=== PATIENT | female | born 1960 | race Caucasian/White ===

== ENCOUNTER 2018-04-22 10:15 | Inpatient (IN) | payer MEDICARE, MEDICAID ==
--- NOTE | 2018-04-13 13:08 | HP ---
HISTORY AND PHYSICAL: DATE OF ADMISSION/SURGERY: 04/22/18 DATE OF OFFICE VISIT: 04/12/18 SURGEON: Rowan Fuentes MD.* (DICTATED BY KARLA ZAMORA) PROCEDURE: Right total knee arthroplasty. CHIEF COMPLAINT: Right knee pain. HISTORY OF PRESENT ILLNESS: Ms. Florez is a 57-year-old female with complaints of right knee pain. She has failed conservative treatment and elected to proceed with right total knee arthroplasty. PAST MEDICAL HISTORY: Hypothyroidism. PAST SURGICAL HISTORY: Hysterectomy, cholecystectomy and tubal ligation. CURRENT MEDICATIONS: 1. Flexeril 5 mg daily. 2. Levothyroxine 25 mcg daily. 3. Ventolin inhaler. ALLERGIES: PENICILLIN. FAMILY HISTORY: Unknown. SOCIAL HISTORY: She is a 57-year-old female. She lives with her . She does not smoke, use drugs or alcohol. REVIEW OF SYSTEMS: A complete 14-point review of systems was reviewed with the patient. It is positive for hypothyroidism. She denies history of DVT, PE, hepatitis, HIV or anesthesia problems. PHYSICAL EXAMINATION GENERAL: She is well developed, well nourished, in no acute distress. VITAL SIGNS: She stands 66 inches tall, weighs 218 pounds. Blood pressure is 134/82, heart rate is 72. HEENT: Normocephalic, atraumatic. NECK: Supple. No palpable lymph nodes. PULMONARY: Lungs are clear to auscultation bilaterally. CARDIAC: Regular rate and rhythm. Strong S1, S2. ABDOMEN: Soft, nontender, nondistended. NEUROLOGICAL: She is alert and oriented x3. MUSCULOSKELETAL: Right lower extremity, the skin is intact. There are no open wounds or abrasions. She has some tenderness over the medial joint line. There is a moderate to large joint effusion. Range of motion is 10 to 90 degrees of flexion with significant patellofemoral crepitus. She has 2+ dorsalis pedis pulse, 5/5 lower extremity strength and intact sensation. ASSESSMENT AND PLAN: Ms. Florez is a 57-year-old female with end-stage osteoarthritis of the right knee. She has failed conservative treatments and elected to proceed with a right total knee arthroplasty. This surgery is scheduled for 04/22/[address] Fuentes discussed the risks and benefits of the surgery at today's visit and all of her questions were answered. She will follow up with Dr. Fuentes 2 weeks after the surgery. KARLA ZAMORA [id number]/CPS #: [id number]
[~2018-04-22 10:15] MED LIST: Buffered Lidocaine 1% SYRIN* 1 ML/SYRINGE INTRADERM ONE; Dexamethasone TAB* 4 MG PO ONE; DiMENhydriNATE IV* 50 MG/ML VIAL IV PUSH PRN; Famotidine IV* 10 MG/ML 2 ML (20 mg) IV ONE; Gabapentin CAP(*) 300 MG PO ONE; Lactated Ringers 1000 ML Bag* 1,000 ML IV SCH; Morphine VIAL* 4 MG/ML VIAL (1 ml vial) IV PRN; Naloxone* 0.4 MG/ML 1 ML VIAL IV PRN; Ondansetron TAB* 4 MG PO ONE; PROCHLORPERAZINE INJ 5 MG/ML 2 ML VIAL IV PRN; Scopolamine 1.5 mg* PATCH TRANSDERM PRN; Tranexamic Acid 1,000 MG in NS 0.9% 50 ML* (outpatient use) IV SCH; fentaNYL* 50 MCG/ML 2 ML VIAL (100 MCG VIAL) IV PRN; oxyCODONE/Acetamin 5/325 MG* TAB PO PRN
--- OUTSIDE RECORDS SUMMARY | 2018-04-22 10:19 | XMS REPORT | Continuity of Care Document ---
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 pharyngitis, unspecified Z11.59 Encounter for screening for other viral diseases Office Visit 05/21/2016 5:15p Main Office Ky Carranza06.9 Acute upper MD respiratory infection, unspecified Office Visit 01/21/2016 2:00p Main Office Manjinder Bear B37.9 Candidiasis, [employer] unspecified 244.8 Hypothyroidism Other Spec Z23 Encounter for immunization E03.8 Other specified hypothyroidism Office Visit 02/16/2015 2:15p Main Office Shawnti R. J06.9 Acute upper Storm, [employer] respiratory infection, unspecified M25.569 Pain in unspecified knee Office Visit 11/10/2014 10:30a Main Office Shawnti R. 465.9 URI Upper Storm, [employer] Respiratory Infections Acute Unspec Sites Office Visit 09/07/2014 11:45a Main Office Shawnti R. 244.9 Hypothyroidism Other Storm, [employer] Unspec 691.8 Dermatitis Atopic & Related Conditions Other Office Visit 05/04/2014 10:30a Main Office Shawnti R. Chema, 477.9 Rhinitis Allergic [employer] Cause Unspec 244.8 Hypothyroidism Other Spec Office Visit 04/18/2014 2:15p Main Office Shawnti R. 465.9 URI Upper Storm, [employer] Respiratory Infections Acute Unspec Sites Office Visit 03/28/2014 11:00a Main Office Shawnti R. 465.9 URI Upper Storm, [employer] Respiratory Infections Acute Unspec Sites Office Visit 10/20/2013 10:45a Main Office Shawnti R. 244.9 Hypothyroidism Other Storm, [employer] Unspec 244.8 Hypothyroidism Other Spec Office Visit 09/05/2013 2:45p Main Office Manjinder Bear, 724.5 Backache Unspec [employer] Office Visit 07/15/2013 2:45p Main Office Mary Long, 724.5 Backache Unspec [employer] Office Visit 05/11/2013 11:45a Main Office Mary Long, 786.2 Cough [employer] Office Visit 05/03/2013 2:15p Main Office Derrickwntvinny RKeaton Bear, 789.9 Abdomen & Pelvis [employer] Symptoms Other 465.9 URI Upper Respiratory Infections Acute Unspec Sites V06.1 Quuofhcepk-Sxzrsqi-Ojqspjbc Combined (DTaP) Office Visit 11/22/2012 2:15p Main Office Derrickwnti R. 717.9 Internal Derangement Storm, [employer] Knee Unspec 844.9 Sprains & Strains Knee & Leg Unspec Office Visit 09/23/2012 4:15p Main Office Derrickwntvinny R. 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 Discussed supportive care and use of medications for symptoms reliefEducated on new/worsening symptoms and when to call/return. Patient stated understanding and agrees to planRecommendations:Continue with your Flonase for the next week Also continue Zyrtec daily during your allergy seasonYou might also benefit from a decongestant
--- OUTSIDE RECORDS SUMMARY | 2018-04-22 10:19 | XMS REPORT | Continuity of Care Document ---
:1960 External Reference #:[id number] Author Name JASPAL Rosales Address [address] [place] [address] Care Team Providers Name Role Phone JASPAL Rosales Care Team Information Monotype Caster Unavailable Payers Type Date Identification Numbers Payment Provider Subscriber Effective: Policy Number: [id number] Medicare - Bswny Umd Lexi Florez 1987 PayID: [id number] [address] [place] [address] Policy Number: [id number] Medicaid After Medicare Lexi Florez Group Name: 2 1 [address] PayID: [id number] [place] [address] Advance Directives Description No Information Available Problems [...] disability is, she used to work at [employer]. She used to work for [employer] when she lived in [place] Tobacco Use Start: Unknown End: Former Cigarette [...] Form Strength Qnty SIG Indications Ordering Provider Ibuprofen 200 04/16 Active Tablets 200mg as needed Olga Bear [employer] S[employer] TEND[employer]-C Fluticasone 08/13 Active Suspension 50mcg/Act 1mont 2 sprays 477.9 Preeti Propionate h each nare Shortle, daily for BOBBIN FIXER rhinitis Nystatin 06/01 Active Cream 063399Prz 30gm apply small B37.2 t/GM amount to Olga Bear, rash three [employer]ER-C times daily until resolved Ventolin HFA 03/12 Active Aerosol 108(90Bas 18uni Inhale 2 e) ts Puffs By Olga Bear, mcg/Act Mouth Every [employer] T[employer]ER-C 4 To 6 Hours as Needed For Wheezing / Tightness Nortriptyline 10/03 Active Capsules 25mg 90cap 1 by mouth M54.30 Shawnti HCL /2016 s every night Olga Bear at bedtime [employer] for back and nerve pain Seated Walker 10/03 Active use as needed for Olga Bear ambulation [employer] Levothyroxine 08/17 Active Tablets 25mcg 30tab 1 by mouth Shawnti Sodium /2016 s every day Olga eBar [employer] Zyrtec Allergy 08/13 Active Tablets 10mg 30tab 1 by mouth J02.9 Yaya s every day MD Dasha Cyclobenzaprine 09/05 Active Tablets 10mg 60tab take one Derrickwnti HCL s tablet by Olga Bear, mouth three [employer]-C times a day if needed for muscle tightness Vitamin D3 Ultra 06/23 Hx Tablets 68837Vooh 16tab one by Manjinder Potency s mouth twice Olga Bear, - weekly for [employer]ER-C 08/22 8 Vitamin D 10/07 Hx Capsules 20969Zpdv 8caps take 1 wnti (Ergocalciferol) capsule by Olga Bear, - mouth twice [employer] 06/01 weekly for /2018 4 weeks Zostavax 10/03 Hx Suspension 97640Mxi/ 1unit inject sq Rec 0.65ML s once Olga Bear, - [employer]-C 06/01 Clarithromycin 08/13 Hx Tablets 500mg 10tab take 1 J02.9 Yaya s tablet by Dasha roque MD 10/03 12 hours /2016 for 5 days Azithromycin 05/21 Hx Tablets 250mg 6tabs take 2 J06.9 Yaya tablets by Heetderks - mouth MD rani 08/13 time take one daily for 4 days Nystatin 01/20 Hx Cream 188315Irv 30gm apply small B37.9 t/GM amount to Olga Bear, - rash three [employer] 05/21 times daily until resolved Azithromycin 02/16 Hx Tablets 250mg 6tabs 2 by mouth nt /2014 today then Olga Bear, - 1 by mouth [employer] 02/26 daily for days Levothyroxine 09/07 Hx Tablets 50mcg 90tab 1 by mouth Yaya Sodium /2014 s every day Dasha Camarena MD 08/17 Triamcinolone 09/07 Hx Ointment 0.5% 15uni apply small 691.8 Shawnti Acetonide ts amount to Olga Bear, - left elbow [employer] 08/13 twice daily as needed Proair HFA 05/30 Hx Aerosol 108(90Bas 1unit 2 puffs e) s every 4-6 Olga Bear, - mcg/Act hours as [employer]C 03/12 needed wheezing or shortness of breath Levothyroxine 05/05 Hx Tablets 75mcg 90tab 1 by mouth Shawnti Sodium /2014 s every day Olga Bear, - for thyroid [employer] 09/07 Cetirizine HCL 05/04 Hx Tablets 10mg 30tab 1 by mouth 477.9 Shawnti /2014 s every day Olga Bear, - for [employer]C 05/21 allergies /2016 Fluticasone 05/04 Hx Suspension 50mcg/Act 1mont 2 sprays 477.9 Shawnti Propionate /2014 h each nare Olga Bear, - daily for [employer]C 05/21 rhinitis Azithromycin 04/18 Hx Tablets 250mg 6tabs 2 by mouth 465.9 Shawnti /2014 today then Olga Bear, - 1 by mouth [employer] 04/28 daily for days Guaifenesin ac 03/28 Hx Syrup 100-10mg/ 150ml 1 teaspoon 465.9 wnti 5ML by mouth Olga Bear, - q4hr as [employer]C 04/07 needed cough Levothyroxine 10/25 Hx Tablets 50mcg 90tab take one Shawnti Sodium s tablet by Olga Bear, - mouth every [employer]C 05/05 day for thyroid replacement Meloxicam 09/05 Hx Tablets 15mg 30tab 1 by mouth 724.5 Shawnti /2013 s daily for Olga Bear, - pain, take [employer] 05/21 with food Back 09/05 Hx Misc 1Brac wear as 724.5 Shawnti Support/Dual e needed for Olga Bear, Adjustment/Large - support and [employer]ER-C -Extra Large 10/20 comfort Cyclobenzaprine 07/15 Hx Tablets 5mg 40tab 1-2 po tid 724.5 Mary HCL /2013 s for muscle Ethan - spasm, july [employer] 09/05 cause drowsiness Heating Pad 07/15 Hx Pads 1Yr Wm 1unit Use to back 724.5 Mary Dry/1 Year /2013 s bid-qid Fidelia Long - for muscle [employer]-C 10/20 spasm. Do not put directly on the skin to prevent frias Guaifenesin/Code 05/11 Hx Syrup 100-10mg/ 240ml 1 - 2 786.2 Mary ine 5ML teaspoon po Ethan, - q 4 hours [employer] 05/11 prn cough, causes drowsiness Vicks Vaporub 05/11 Hx Ointment 4.7-1.2-2 1Tub Rub a small 786.2 Mary /2013 .6% amount on Ethan, - chest bid [employer] 09/05 prn for cough Guaifenesin 05/11 Hx Solution 200mg/10M 500ml 1-2 Mary L teaspoon po Ethan, - q 4-6 hours [employer] 09/05 Benzonatate 05/11 Hx Capsules 100mg 45cap 1 po tid s prn cough, Ethan, - [employer]ER-C 09/05 Levothyroxine 07/30 Hx Tablets 25mcg 90tab take one Shawnti Sodium s tablet by Olga Bear, - mouth every [employer]-C 10/25 day not take with vitamins No Active 07/09 Hx Unknown Medications /2012 - 07/30 Tessalon Perles 05/21 Hx Capsules 100mg 30cap 1 po tid nt s prn cough Olga Bear, - [employer]C 07/09 No Active 05/18 Hx Shawnti Medications Olga Bear, - [employer]C 05/18 Prednisone 05/18 Hx Tablets 50mg 5tabs one pill po 466.0 daily for 5 Olga Bear, - days for [employer]ER-C 05/28 Azithromycin 05/18 Hx Tablets 250mg 6tabs 2 po today 466.0 nt then 1 po Olga Bear, - daily for 4 [employer] Immunizations CPT Code Status Date Vaccine Lot # [id number] Given 01/21/2016 Pneumovax 23 (PPSV23) 65+ years or high risk 2 to [id number] 66 year old 38369 Given 01/21/2016 Influenza Virus Vaccine, Quadrivalent, 3 Yr > [id number] Quad, Preserv Free 24392 Given 01/12/2014 Influenza Virus Vaccine, Quadrivalent, 3 Yr > [id number] Quad, Preserv Free 43582 Given 05/03/2013 Tdap (Adacel) [id number] Refused 04/16/2018 Influenza Virus Vaccine, Quadrivalent, 3 Yr > Quad , Preserv Free Vital Signs Date Vital Result Comment 08/13/2017 [...] Date Facility Test Result H/L Range Note Urine Culture And 04/13/2018 [facility] Urine SEE RESULT 1 Sensitivities [phone] Culture BELOW Comp Metabolic 04/13/2018 [facility] Sodium 140 mmol/ L N 135-145 Panel [phone] Potassium 4.2 mmol/L N 3.5-5.0 Chloride 103 mmol/L N 101-111 Co2 Carbon Dioxide 30 mmol/L N 22-32 Anion Gap 7 mmol/L N 2-11 Glucose 102 mg/dL High 70-100 Blood Urea Nitrogen 15 mg/dL N 6-24 Creatinine 0.76 mg/dL N 0.51-0.95 BUN/Creatinine Ratio 19.7 N 8-20 Calcium 9.6 mg/dL N 8.6-10.3 Total Protein 7.0 g/dL N 6.4-8.9 Albumin 4.4 g/dL N 3.2-5.2 Globulin 2.6 g/dL N 2-4 Albumin/Globulin Ratio 1.7 N 1-3 Total Bilirubin 0.40 mg/dL N 0.2-1.0 Alkaline Phosphatase 101 U/L N 34-104 Alt 38 U/L N 7-52 Ast 21 U/L N 13-39 Egfr Non- 79.0 >60 Egfr 95.6 >60 2 CBC Auto Diff 04/13/2018 [facility] White Blood 7.5 10^3/uL N 3.5-10.8 [phone] Count Red Blood Count 5.10 10^6/uL N 4.00-5.40 Hemoglobin 13.8 g/dL N 12.0-16.0 Hematocrit 42 % N 35-47 Mean Corpuscular Volume 82 fL N 80-97 Mean Corpuscular Hemoglobin 27 pg N 27-31 Mean Corpuscular HGB Conc 33 g/dL N 31-36 Red Cell Distribution Width 13 % N 10.5-15 Platelet Count 272 10^3/uL N 150-450 Mean Platelet Volume 9.2 fL N 7.4-10.4 Abs Neutrophils 4.5 10^3/uL N 1.5-7.7 Abs Lymphocytes 2.3 10^3/uL N 1.0-4.8 Abs Monocytes 0.5 10^3/uL N 0-0.8 Abs Eosinophils 0.1 10^3/uL N 0-0.6 Abs Basophils 0.1 10^3/uL N 0-0.2 Abs Nucleated RBC 0 10^3/uL Granulocyte % 60.3 % Lymphocyte % 30.3 % Monocyte % 6.8 % Eosinophil % 1.8 % Basophil % 0.8 % Nucleated Red Blood Cells % 0.1 Inr/Protime 04/13/2018 [facility] Inr 0.95 N 0.77- 1.02 [phone] Type & Screen 04/13/2018 [facility] Patient Blood O Positive [phone] Type Antibody Screen NEGATIVE Urinalysis Profile 04/13/2018 [facility] Urine Color Yellow [phone] Urine Appearance Cloudy Urine Specific [place] 1.021 N 1.010-1.030 Urine pH 5.0 N 5-9 Urine Urobilinogen Negative Negative Urine Ketones Negative Negative Urine Protein Negative Negative Urine Leukocytes Negative Negative Urine Blood 1+ Abnormal Negative Urine Nitrite Negative Negative Urine Bilirubin Negative Negative Urine Glucose Negative Negative Urine White Blood Cell Trace(0-5/hpf) Absent Urine Red Blood Cell Trace(0-2/hpf) Absent Urine Bacteria 2+ Abnormal Absent Urine Squamous Epithelial Cell Present Abnormal Absent Laboratory test 04/13/2018 [facility] Partial 39.6 High 26.0-36.3 finding [phone] Thrombo Time seconds PTT Laboratory test 07/31/2017 [facility] Cologuard neg finding [address] [place] [address] [phone] CBC Auto Diff 06/01/2017 [facility] White Blood 8.3 10^3/uL N 3.5-10.8 3 [phone] Count Red Blood Count 4.87 10^6/uL N [...] 0-2 Nucleated Red Blood Cells % 0.1 Comp Metabolic Panel 06/01/2017 [facility] Sodium 135 mmol/L N 133-145 [phone] Potassium 4.0 mmol/L N 3.5-5.0 Chloride 102 [...] Egfr Non- 84.1 >60 Egfr 108.2 >60 4 Lipid Profile 06/01/2017 [facility] Triglycerides 330 mg/dL 5 (Trig/Chol/HDL) [phone] Cholesterol 188 mg/dL 6 HDL Cholesterol 30.4 mg/dL 7 LDL Cholesterol 92 mg/dL 8 Laboratory test 06/01/2017 [facility] TSH (Thyroid 3.19 N 0.34-5.60 9 finding [phone] Stimulating mcIU/mL Horm) Hemoglobin A1c 5.6 % N 4.0-5.6 10 Vitamin D Total 25(Oh) 10.4 ng/mL Low 20-50 11 Laboratory test 10/03/2016 [facility] Vitamin D 10.1 Low 30-50 12, 13 finding [phone] Total ng/mL 25(Oh) Laboratory test 08/13/2016 [facility] TSH 0.15 Low 0.34-5.60 14 finding [phone] (Thyroid mcIU/mL Stim Horm) Free T4 (Free Thyroxine) 1.55 ng/dL High 0.61-1.12 15 Hepatitis C Antibody Nonreactive N Nonreactive 16 Laboratory test 01/21/2016 [facility] TSH (Thyroid 4.70 mcIU/mL N 0.34-5.60 17 finding [phone] Stim Horm) Rapid Influenza 06/21/2015 [facility] Influenza A NEGATIVE N Negative 18 A & B Molecular [phone] Molecular Influenza B Molecular NEGATIVE N Negative Laboratory test 05/04/2014 [facility] Hemoglobin A1c 5.6 % N Less than 19 finding [phone] 6.0 CBC No Diff 05/04/2014 [facility] White Blood 10.6 N 4.8-10.8 [phone] Count 10^3/uL Red Blood Count 4.87 10^6/uL [...] Volume 10 um3 N 7.4-10.4 Laboratory 05/04/2014 [facility] TSH (Thyroid 6.41 High 0.34-5.60 test finding [phone] Stimulating IU/mL Horm) Laboratory 10/20/2013 [facility] TSH (Thyroid 16.16 High 0.34-5.60 test finding [phone] Stimulating IU/mL Horm) Laboratory 05/12/2013 [facility] Troponin I < 0.01 <0.03 20 test finding [phone] ng/mL Comp Metabolic 05/12/2013 [facility] Sodium 134 133-145 Panel [phone] mmol/L Potassium 4.2 mmol/L 3.7-5.6 Chloride 102 [...] Egfr Non- 94.8 >60 Egfr 121.9 >60 21 Laboratory test 05/12/2013 [facility] D Dimer < 200 Less 22 finding [phone] Quantitative ng/mL Than 230 CBC Auto Diff 05/12/2013 [facility] White Blood 12.9 High 4.8-10.8 [phone] Count 10^3/uL Red Blood Count 4.55 10^6/uL [...] Blood Cells % 0 Laboratory test 08/09/2012 [facility] Surgical RUN DATE: finding [phone] Pathology 08/10/ <SEE NOTE> Laboratory test 07/09/2012 [facility] Activated Partial 33.5 22.1 finding [phone] Thrombo Time seconds 8-37 .18 Inr/Protime 07/09/2012 [facility] Inr 0.88 0.87 [phone] -0.9 7 Laboratory test 07/09/2012 [facility] TSH (Thyroid 9.95 miu/mL High 0.34 finding [phone] Stimulating Horm) -5.6 0 Lipid Profile 07/09/2012 [facility] Triglycerides 350 mg/dL High 40-2 (Trig/Chol/HDL) [phone] Cholesterol 213 mg/dL High Less than 200 HDL Cholesterol 33 mg/dL Low 40-60 24 Cholesterol/HDL Ratio 6.5 Average High 1-4.44 LDL Cholesterol 110.0 mg/dL High Less Than 100 25 Comp Metabolic Panel 07/09/2012 [facility] Sodium 137 mmol/L 133-145 [phone] Potassium 4.2 mmol/L 3.5-5.0 Chloride 103 mmol/L [...] Egfr Non- 88.6 >60 Egfr 113.9 >60 26 CBC No Diff 07/09/2012 [facility] White Blood 8.0 10^ 3/uL 4.8-10.8 [phone] Count Red Blood Count 4.75 10^6/uL 4.0-5.4 [...] NEG Neg Urine Blood NEG Neg Specific [place] 1.02 1.01-1.02 1 SEE RESULT BELOW Name: LEXI FLOREZ : [address]: Rowan Fuentes MD Acct: [id number] Unit: [id number] AGE: 57 Location: PAT Re04/13/18 SEX: F Status: REG REF SPEC: [id number] [place]: 04/13/18-15[address] [facility] [address]: Rowan Fuentes MD REQ: [id number] RECD: 04/13/18 STATUS: SHASHA SOL DR: Manjinder Bear BOBBIN FIXER _ SOURCE: URINE SPDESC: ORDERED: Urine Culture QUERIES: Urine Source: Clean Catch Procedure Result Reported Site Urine Culture Final 04/14/18- 1300 ML No growth of clinically significant organisms * ML - Main Lab . END OF REPORT DEPARTMENT OF PATHOLOGY, [address] [place] [address] Zeeshan Wood M.D. Director [facility] # [id number] 2 Because ethnic data is not always readily [...] 15-29 5 Kidney failure <15 (or dialysis) 3 [id number] 4 Because ethnic data is not always readily [...] 15-29 5 Kidney failure <15 (or dialysis) 5 Desirable: <150 Borderline High: 150-199 High: 200-499 Very High: >500 6 Desirable: <200 Borderline High: 200-239 High: >239 7 Low: <40 Desirable: 40-60 High: >60 8 Desirable: <100 Near Optimal: 100-129 Borderline High: 130-159 High: 160-189 Very High: >189 9 [id number] 10 Therapeutic target for the treatment of diabetes mellitus patients is <7% HBA1C, and in selective patients <6.0%. Please refer to [place] Diabetes Association diabetic care guidelines for further information. 11 [id number] 12 [id number] 13 [id number] 14 [id number] 15 [id number] 16 [id number] 17 [id number] 18 Casing Material Weigher: [id number] AMANDA HATCH 19 Therapeutic target for the treatment of diabetes Mellitus patients is <7% HBA1C, and in selective patients <6.0%.Please refer to [place] Diabetes Association Diabetic care guidelines for further information. 20 Reference Range and Interpretation: TnI (ng/mL) Interpretation Less Than 0.03 ng/mL Not supportive of diagnosis of ID 0.03 - 0.50 ng/mL Indeterminate: suggest serial studies if clinically indicated. Greater than 0.5 ng/mL Consistent with diagnosis of ID 21 Because ethnic data is not always readily [...] 15-29 5 Kidney failure <15 (or dialysis) 22 Please note: The following may produce a false positive D Dimer test: - Rheumatoid factor greater than 60 IU/ml - Plasma hemoglobin greater than 0.05 gm/dl - Bilirubin greater than 50 mg/dl - Lipids greater than 1000 mg/dl - FDP greater than 20 ug/ml 23 RUN DATE: 08/10/12 [facility] LIVE PAGE 1 RUN TIME: [address] [place] [address] Specimen Inquiry Name: LEXI FLOREZ : [address]: Manjinder Bear NP Acct: [id number] Unit: [id number] AGE: 52 Location: [facility] Re08/09/12 SEX: F Status: REG REF SPEC: [id number] [place]: 08/09/12-[address]: Manjinder Bear NP REQ: [id number] RECD: 08/09/123 STATUS: SOUT _ ORDERED: LEVEL IV FINAL DIAGNOSIS Skin, lower back, excision: Benign, predominantly intradermal melanocytic nevus, neurotized in association with dermal lipoma with fat necrosis compatible with mechanical trauma. CLINICAL HISTORY No history given GROSS DESCRIPTION The specimen is received in formalin labeled [facility], Lower Back, and consists of a pelayo-pink polypoid fragment measuring 1.8 x 1.5 x 1.0 cm. Cut section demonstrates lobulated adipose tissue. Men'S Garment Fitter sections, one cassette. Signed (signature on file) Zeeshan Wood MD 1557 END OF REPORT * ML=Testing performed at Main Lab DEPARTMENT OF PATHOLOGY, [address] [place] [address] Zeeshan Wood M.D. Director [facility] Permit #[id number] HDL Interpretation: Undesirable: High Risk: Less than 40 MG/DL Desirable: Low Risk: Greater than 60 MG/DL 25 LDL Interpretation: Low Risk Optimal Level: LDL Less than 100 MG/DL Near or Above Optimal: LDL 100-129 MG/DL Borderline High Risk: LDL 130-159 MG/DL High Risk: LDL 160-189 MG/DL Very High Risk: LDL Greater than 189 MG/DL 26 Because ethnic data is not always readily [...] (or dialysis) Procedures Date Code Description Status 04/16/2018 94597 EKG, at Least 12 Leads w/Interpretation and Report Completed 08/09/2012 92612 Excision Of Lesion (Trunk,Arm,Leg) .6 To 1 CM. Completed 07/09/2012 41942 EKG, at Least 12 Leads w/Interpretation and Report Completed Encounters Type Date Location Provider Dx Diagnosis Office Visit 08/13/2017 Main Office Preeti Guerrero J02.9 Acute pharyngitis, 3:00p BOBBIN FIXER unspecified Office Visit 06/01/2017 Main Office Manjinder Bear, Z00.00 Encntr for general 1:30p [employer] S[employer] TENDER-C adult medical exam w/o abnormal findings B37.2 Candidiasis of skin and nail Z12.31 Encntr screen mammogram for malignant neoplasm of breast Office Visit 11/13/2016 3:30p Main Office Manjinder Bear, M54.5 Low back pain [employer]-C R51 Headache Office Visit 10/03/2016 2:15p Main Office Manjinder Espinoza M54.30 Sciatica, Storm, [employer] TENDER-C unspecified side S33.5xxA Sprain of ligaments of lumbar spine, initial encounter M54.5 Low back pain Office Visit 08/13/2016 10:00a Main Office Yaya E03.9 Hypothyroidism, MD Dasha unspecified J02.9 Acute pharyngitis, unspecified Z11.59 Encounter for screening for other viral diseases Office Visit 05/21/2016 5:15p Main Office Yaya Lou J06.9 Acute upper MD respiratory infection, unspecified Office Visit 01/21/2016 2:00p Main Office Manjinder Bear, B37.9 Candidiasis, [employer] T[employer]ER-C unspecified 244.8 Hypothyroidism Other Spec Z23 Encounter for immunization E03.8 Other specified hypothyroidism Office Visit 02/16/2015 2:15p Main Office Derrickwriver Espinoza J06.9 Acute upper Storm, [employer] T[employer]ER-C respiratory infection, unspecified M25.569 Pain in unspecified knee Office Visit 11/10/2014 10:30a Main Office Derrickwntvinny R. 465.9 URI Upper Storm, [employer] TENDER-C Respiratory Infections Acute Unspec Sites Office Visit 09/07/2014 11:45a Main Office Shawnti R. 244.9 Hypothyroidism Other Storm, [employer] TENDER-C Unspec 691.8 Dermatitis Atopic & Related Conditions Other Office Visit 05/04/2014 10:30a Main Office Derrickwriver Bear, 477.9 Rhinitis Allergic [employer] T[employer]ER-C Cause Unspec 244.8 Hypothyroidism Other Spec Office Visit 04/18/2014 2:15p Main Office Derrickwnti RKeaton 465.9 URI Upper Storm, [employer] TENDER-C Respiratory Infections Acute Unspec Sites Office Visit 03/28/2014 11:00a Main Office Derrickwntvinny RKeaton 465.9 URI Upper Storm, [employer] TENDER-C Respiratory Infections Acute Unspec Sites Office Visit 10/20/2013 10:45a Main Office Manjinder Espinoza 244.9 Hypothyroidism Other Storm, [employer] TENDER-C Unspec 244.8 Hypothyroidism Other Spec Office Visit 09/05/2013 2:45p Main Office Manjinder Bear, 724.5 Backache Unspec [employer]ER-C Office Visit 07/15/2013 2:45p Main Office Mary Long, 724.5 Backache Unspec [employer]-C Office Visit 05/11/2013 11:45a Main Office Mary Long, 786.2 Cough [employer]ER-C Office Visit 05/03/2013 2:15p Main Office Manjinder Bear, 789.9 Abdomen & Pelvis [employer] T[employer]ER-C Symptoms Other 465.9 URI Upper Respiratory Infections Acute Unspec Sites V06.1 Eueapltuzn-Ghtfqml-Epaccmkw Combined (DTaP) Office Visit 11/22/2012 2:15p Main Office Manjinder Espinoza 717.9 Internal Derangement Storm, [employer] S[employer]ER TENDER-C Knee Unspec 844.9 Sprains & Strains Knee & Leg Unspec Office Visit 09/23/2012 4:15p Main Office Manjinder Espinoza 784.0 Headache Storm, [employer]ER-C Office Visit 07/09/2012 10:00a Main Office Manjinder Espinoza V72.84 Examination Storm, [employer] TENDER-C Preoperative Unspec 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
--- OUTSIDE RECORDS SUMMARY | 2018-04-22 10:19 | XMS REPORT | Continuity of Care Document ---
:1960 External Reference #:[id number] Author Name Kathleen Dozier Care Team Providers Name Role Phone Manjinder Bear NP Primary Care Physician Unavailable Payers Type Date Identification Numbers Payment Provider Subscriber Effective: 1989 Policy Number: [id number] Medicare Lexi Florez PayID: [id number] [address] [place] [address] Policy Number: [id number] Medicaid Lexi Florez Group Name: 1 1 [address] PayID: [id number] [place] [address] Advance Directives Description No Information Available Problems Date Description Provider Status Onset: 03/12/2015 Localized, primary osteoarthritis Rowan Fuentes M.D. Active Family History Date Family Member(s) Problem(s) Comments General Cancer Social History Type Date Description Comments Sex Unknown Lives With Boyfriend Occupation Retired ETOH Use Denies alcohol use Tobacco Use Start: Unknown Patient has never smoked Smoking Status Reviewed: 04/12/18 Patient has never smoked Exercise Type/Frequency Does not exercise Allergies, Adverse Reactions, Alerts Date Description Reaction Status Severity Comments 12/20/2012 Penicillin Active Medications Medication Date Status Form Strength Qnty SIG Indications Ordering Provider Cyclobenzaprine Active Tablets 5mg 1 tablet Unknown HCL 000 by mouth three times a day as needed Levothyroxine Active Tablets 25mcg 1 by Unknown Sodium 000 mouth every day Ventolin HFA Active Aerosol 108(90Base 2 puffs Unknown 000 ) mcg/Act by mouth four times a day as needed Advil Active prn Unknown 000 Immunizations Description No Information Available Vital Signs Date Vital Result Comment 04/12/2018 1:04pm Height 66 inches 5'6" Weight 218.00 lb Heart Rate 72 /min BP Systolic 134 mmHg BP Diastolic 82 mmHg Respiratory Rate 16 /min Body Temperature 97.6 F Pain Level 0 BMI (Body Mass Index) 35.2 kg/m2 03/03/2018 11:21am Height 66 inches 5'6" Weight 215.00 lb Heart Rate 84 /min BP Systolic 128 mmHg BP Diastolic 82 mmHg Body Temperature 97.8 F Pain Level 6 BMI (Body Mass Index) 34.7 kg/m2 04/13/2015 11:25am Height 66 inches 5'6" Weight 222.00 lb BMI (Body Mass Index) 35.8 kg/m2 03/12/2015 8:51am Height 66 inches 5'6" Weight 222.00 lb Heart Rate 84 /min BP Systolic 130 mmHg BP Diastolic 86 mmHg BMI (Body Mass Index) 35.8 kg/m2 12/20/2012 2:46pm Height 66 inches 5'6" Weight 226.00 lb Heart Rate 74 /min BP Systolic 134 mmHg BP Diastolic 87 mmHg BMI (Body Mass Index) 36.5 kg/m2 Results Description No Information Available Procedures Date Code Description Status 12/20/2012 46386 Rad Exam; Knee, Ap&L Completed 12/20/2012 15184 Rad Exam; Knee, Ap&L Completed Encounters Type Date Location Provider Dx Diagnosis Office Visit 03/03/2018 [facility] Rowan Fuentes, M25.562 Pain in left knee 10:45a [facility] M25.561 Pain in right knee M25.462 Effusion, left knee M25.461 Effusion, right knee M17.0 Bilateral primary osteoarthritis of knee M17.11 Unilateral primary osteoarthritis, right knee Office Visit 02/10/2017 10:30a [facility] Ady Costello, D22.39 Melanocytic nevi of other parts of face D22.4 Melanocytic nevi of scalp and neck D22.5 Melanocytic nevi of trunk L82.1 Other seborrheic keratosis D23.71 Ot benign neoplasm skin/ right lower limb, including hip Office Visit 04/13/2015 11:00a Orthopedic Rowan M17.0 Bilateral primary [facility] oste[facility] knee M25.562 Pain in left knee M25.561 Pain in right knee Office Visit 03/12/2015 8:30a Orthopedic Rowan M17.0 Bilateral primary [facility] Fuentes osteoarthritis of [facility] knee M25.562 Pain in left knee M25.561 Pain in right knee Office Visit 02/09/2013 2:15p Orthopedic Sathish Medel, 716.96 Arthropathy Unspec [facility] Office Visit 12/20/2012 2:45p Orthopedic Sathish Medel, 719.46 Pain Joint [facility] Plan of Treatment Future Appointment(s):05/03/2018 2:00 pm - Rowan Fuentes M.D. at [facility]04/22/2018 4:45 pm - KATI Henderson at [facility]04/22/2018 4:45 pm - KARLA Boyd at [facility]04/22/2018 4:45 pm - Rowan Fuentes M.D. at [facility]04/12/2018 - Rowan Fuentes M.D.M25.461 Effusion, right kneeFollow up:Follow up: 2 weeks after xfvfluxE86.561 Pain in right kneeM17.0 Bilateral primary osteoarthritis of knee
[2018-04-22] MEDS ORDERED: fentaNYL* 50 MCG/ML 2 ML VIAL (100 MCG VIAL) ONE ×2 (10:22→16:47)
[2018-04-22] MEDS ORDERED: KETAMINE HCL* 50 MG/ML 10 ML VIAL ONE (10:22)
[2018-04-22] MEDS ORDERED: Midazolam* 1 MG/ML 10 ML VIAL (10 MG) ONE (10:22)
[2018-04-22] MEDS ORDERED: Dexamethasone TAB* 4 MG ONE (10:38)
[2018-04-22] MEDS ORDERED: Buffered Lidocaine 1% SYRIN* 1 ML/SYRINGE INTRADERM ONE (10:38)
[2018-04-22] MEDS ORDERED: Ondansetron ODT TAB* 4 MG ONE (10:38)
[2018-04-22] MEDS ORDERED: Clindamycin 900 MG/D5W BAG(*) 900 MG/50 ML BAG IVPB ONE (10:38)
[2018-04-22] MEDS ORDERED: Famotidine IV* 10 MG/ML 2 ML (20 mg) ONE (10:38)
[2018-04-22] MEDS ORDERED: Gabapentin CAP(*) 300 MG ONE (10:56)
[2018-04-22] MEDS ORDERED: Ropivacaine* 2 MG/ML 20 ML VIAL (0.2%) ONE (12:07)
[2018-04-22] MEDS ORDERED: ROPIVACAINE 5 MG/ML 30 ML BTL (0.5%) ONE (12:15)
[2018-04-22] MEDS ORDERED: Morphine VIAL* 10 MG/ML 1 ML VIAL ONE (12:33)
[2018-04-22] MEDS ORDERED: hydrALAZINE IV* 20 MG/ML VIAL ONE (13:20)
[2018-04-22] MEDS ORDERED: PROCHLORPERAZINE INJ 5 MG/ML 2 ML VIAL ONE (13:20)
[2018-04-22] MEDS ORDERED: Propofol* 10 MG/ML 20 ML BTL ONE (13:20)
[2018-04-22] MEDS ORDERED: Ketorolac INJ* 30 MG/ML 1 ML VIAL ONE (13:20)
[2018-04-22] MEDS ORDERED: Metoprolol Tartrate IV* 1 MG/ML 5 ML VIAL ONE (13:32)
[2018-04-22] MEDS ORDERED: Ondansetron INJ* 2 MG/ML VIAL IV PRN (15:07)
[2018-04-22] MEDS ORDERED: Magnesium Hydroxide LIQ* 30 ML UDC PO PRN (15:07)
[2018-04-22] MEDS ORDERED: diPHENhydraMINE PO* 25 MG PO PRN (15:07)
[2018-04-22] MEDS ORDERED: diPHENhydraMINE IV* 50 MG/ML 1 ml VIAL (BENADRYL) IV PRN (15:07)
[2018-04-22] MEDS ORDERED: oxyCODONE TAB* 5 MG TAB PO PRN (15:07)
[2018-04-22] MEDS ORDERED: traMADol TAB* 50 MG PO PRN (15:07)
[2018-04-22] MEDS ORDERED: Polyethylene Glycol 3350* 17 GM PACKET PO PRN (15:07)
[2018-04-22] MEDS ORDERED: Bisacodyl SUPP* 10 MG SUPP PR PRN (15:07)
[2018-04-22] MEDS ORDERED: Morphine INJ* 2 MG/ML 1 ML SYRINGE (TWO MG - NEW SYRINGE VERSION) IV PRN (15:07)
[2018-04-22] MEDS ORDERED: Fluticasone NASAL SPRAY 50MCG* 16 gm SPRAY BTL BOTH NARES PRN (15:14)
[2018-04-22] MEDS ORDERED: ceFAZolin 1 GM ADVAN(*) 1 GM in NS 0.9% 50 ML* 50 ML IVPB SCH (16:00)
[2018-04-22] MEDS: Albuterol HFA INHALER* 8 gm MDI INH SCH (20:18)
[2018-04-22] MEDS ORDERED: Apixaban* 2.5 MG TAB PO SCH (21:00)
[2018-04-22] MEDS: oxyCODONE/Acetamin 5/325 MG* TAB PO PRN (22:02)
[2018-04-22] MEDS: Magnesium Hydroxide LIQ* 30 ML UDC PO SCH (22:03)
[2018-04-22] MEDS: Clindamycin 600 MG/D5W BAG(*) 600 MG/50 ML BAG IV SCH (22:03)
[2018-04-22] MEDS: Acetaminophen TAB* 325 MG PO SCH (22:03)
[2018-04-22] MEDS: Docusate CAP* 100 MG PO SCH (22:03)
--- NOTE | 2018-04-22 22:34 | OP ---
DATE OF OPERATION: 04/22/18 - ROOM #349 DATE OF : 64 SURGEON: Rowan Fuentes MD STEWARD/STEWARDESS LOUNGE: KARLA De Jesus. Kala did help throughout the procedure with preparation of the leg, wound retraction, manipulation of the knee, and wound closure. ANESTHESIOLOGIST: Dr. Smith. ANESTHESIA: Spinal. PRE-OP DIAGNOSIS: Severe end-stage degenerative osteoarthritis of the right knee joint with valgus deformity. POST-OP DIAGNOSIS: Severe end-stage degenerative osteoarthritis of the right knee joint with valgus deformity. OPERATIVE PROCEDURE: Right total knee arthroplasty. INDICATIONS: Ms. Florez is a 57-year-old female with years of increasingly severe right knee pain. She failed conservative treatment with anti- inflammatories, pain medications, intraarticular injection, and physical therapy. Radiographs showed severe end-stage arthritis. She started to develop lateral pain and valgus deformity. Due to continued pain and decreased quality of life, she elected to undergo right total knee arthroplasty. Informed consent was obtained from the patient. She understood the risks of the surgery included but were not limited to bleeding, infection, damage to nearby structures, continued pain, need for further surgery, intraoperative fracture, nerve palsy, hardware failure or loosening, knee stiffness, loss of motion, stroke, heart attack, blood clot, and . She wished to proceed. TOURNIQUET TIME: 46 minutes. COMPLICATIONS: None. ESTIMATED BLOOD LOSS: 300 cc. SPECIMENS: Bone and cartilage from the right knee joint sent to Pathology. HARDWARE USED: This is cemented Pav[employer]hew total knee arthroplasty hardware. Two packages of Simplex bone cement. For the femur, a right 4 Narrow posterior stabilized Legion Oxinium femoral component. For the tibia, a right size 3 tibial baseplate Zaina II. For the insert, a 9-mm posterior stabilized articular insert size 3-4; and for the patella, a 29-mm 3-peg all poly patella with 7.5 thickness. INTRAOPERATIVE FINDINGS: Intraoperatively, the patient had preop valgus deformity of 12 degrees. She was noted to have complete loss of cartilage in the lateral patellofemoral compartments. DESCRIPTION OF PROCEDURE: Ms. Florez was identified in the preanesthesia unit. Her right lower extremity was marked as the correct operative side. Informed consent was signed and placed in the chart. The patient was taken to the operating room and placed under spinal anesthesia. A Calhoun catheter was placed. Tourniquet was placed on the right thigh. Right lower extremity was prepped and draped in the usual sterile fashion. Preop time-out was made to correctly identify the patient's side and site. Appropriate perioperative antibiotics were given within 1 hour of incision. Tourniquet was inflated. A midline incision was made with a 10 blade and carried down to the extensor mechanism. New 10 blade was used to make a standard medial parapatellar arthrotomy. The patella was subluxed laterally. Electro-autery was used to subperiosteally elevate soft tissue off the superomedial tibia to the midsagittal plane. The knee was flexed up. The anterior horn of the lateral meniscus and the ACL were sharply released. A drill was used to enter the distal femur. Intramedullary distal femoral cutting guide was pinned on the distal femur. Oscillating saw was used to make the distal cut. Next, the external rotation guide was pinned on the distal femur. Distal femur was sized to a size 4. Size 4 multi-cutting jig was pinned on the distal femur. Oscillating saw was used to make the appropriate 4 chamfer cuts. The PCL was completely released and the tibia was subluxed anteriorly. Extramedullary tibial cutting guide was pinned on the proximal tibia. Oscillating saw was used to make the proximal tibial cut perpendicular to the mechanical axis of the tibia. The bone was carefully removed. The knee was brought out into full extension. Spacer block had good fit. Medial and lateral ligaments were well balanced. Flexion and extension gaps were well balanced. The knee was flexed and lamina polisher aluminum was placed both medially and laterally. Any remaining meniscus was carefully removed using electrocautery. Curved osteotome was used to remove any posterior osteophytes. Tibial tray and drop osiris were placed and confirmed a satisfactory tibial cut. A size 4 Narrow right femoral trial was impacted on to the distal femur and had excellent fit and stability. The box for the posterior stabilized implant was prepared using a reamer and box cut osteotome. Size 3 tibial trial with a 9-mm insert trial was placed and the knee was taken through a range of motion. The knee had full extension to 130 degrees of flexion. There was satisfactory patellofemoral tracking. The patella was everted. 7 mm of patellar bone and cartilage was carefully removed using an oscillating saw. Patella was sized to a size 29. Three peg holes were drilled through the size 29 guide. 29 trial patella with 7.5 thickness was placed and the knee was taken through a range of motion. There was satisfactory patellofemoral tracking. All trials were carefully removed. he tibia was subluxed anteriorly and sized to a size 3. Proximal tibia was prepared using a size 3 keel punch. All bony cut surfaces were copiously irrigated with sterile saline and dried. Final implants were cemented into place starting with the tibia, followed by the femur, and lastly the patella. A 9-mm insert trial was placed and the knee was brought out into full extension. Tourniquet was turned down at 46 minutes. Electrocautery was used to obtain meticulous hemostasis. The knee was copiously irrigated with sterile saline. Once the cement had fully cured, the insert trial was removed. Any extra cement was removed from around the capsule and hardware. Final insert chosen was a 9-mm posterior stabilized articular insert size 3-4. This was locked into position on the tibial tray. Stability of the insert was checked and rechecked and noted to be stable. The extensor mechanism was closed using interrupted #1 Vicryls. The rest of the incision was closed in a layered fashion using 0 and 2-0 Vicryls. Skin was closed using running 3-0 nylon suture. Sterile Xeroform, 4x4s, and Webril were used to cover the incision. John wrap and cold pack were placed over this. The patient's anesthesia was reversed without difficulty. She was taken to the PACU in stable condition. Intended weightbearing will be weightbearing as tolerated. Intended DVT prophylaxis will be Eliquis. [id number]/[facility] #: [id number] [facility]
[2018-04-23] MEDS: Levothyroxine TAB* 25 MCG TAB PO SCH ×2 (00:24→20:18)
[2018-04-23] MEDS: Albuterol HFA INHALER* 8 gm MDI INH SCH ×2 (00:28→20:11)
[2018-04-23] MEDS: Cyclobenzaprine TAB* 10 MG PO PRN ×2 (00:28→20:30)
[2018-04-23] MEDS: Lactated Ringers 1000 ML Bag* 1,000 ML IV SCH ×2 (03:44→22:46)
[2018-04-23] MEDS: Clindamycin 600 MG/D5W BAG(*) 600 MG/50 ML BAG IV SCH ×3 (05:19→20:31)
[2018-04-23] MEDS: oxyCODONE/Acetamin 5/325 MG* TAB PO PRN ×4 (05:34→21:37)
[2018-04-23] MEDS: Acetaminophen TAB* 325 MG PO SCH ×3 (05:36→21:38)
[2018-04-23 05:38] LABS: Hematocrit 34 % (35-47); Hemoglobin 11.4 g/dl (12.0-16.0); Platelet Count 223 10^3/ul (150-450)
[2018-04-23 05:41] LABS: BUN/Creatinine Ratio 22.2 (8-20); Calcium 8.5 mg/dL (8.6-10.3); EGFR African American 118.7 (>60); EGFR Non-African American 98.1 (>60); Potassium 4.2 mmol/L (3.5-5.0)
--- NOTE | 2018-04-23 07:37 | PN ---
Progress Note - Progress Note Date of Service: 04/23/18 SOAP: Subjective: Pt. is alert, reports pain is controlled. Objective: Vital Signs: Temp Pulse Resp BP Pulse Ox 97.8 F 97 16 98/58 97 04/23/18 07:30 04/23/18 07:30 04/23/18 07:30 04/23/18 07:30 04/23/18 07:30 Laboratory Results - last 24 hr 04/23/18 04/23/18 05:07 05:07 Hgb 11.4 L Hct 34 L Plt Count 223 MPV 9.0 Sodium 137 Potassium 4.2 Chloride 105 Carbon Dioxide 26 Anion Gap 6 BUN 14 Creatinine 0.63 Est GFR ( Amer) 118.7 Est GFR (Non-Af Amer) 98.1 BUN/Creatinine Ratio 22.2 H Glucose 163 H Calcium 8.5 L RLE - dressing c/d/i. distally +df/pf, distally sens lt, 2+ dp pulse. Assessment: 57 yo F pod 1 s/p RTKA Plan: wbat rlnatasha talley pt/ot plan d/c to home with vns today or tomorrow
[2018-04-23] MEDS: Apixaban* 2.5 MG TAB PO SCH ×2 (08:21→20:30)
[2018-04-23] MEDS: Magnesium Hydroxide LIQ* 30 ML UDC PO SCH ×2 (08:26→20:32)
[2018-04-23] MEDS: Docusate CAP* 100 MG PO SCH ×2 (08:26→20:32)
[2018-04-24] MEDS: oxyCODONE/Acetamin 5/325 MG* TAB PO PRN ×2 (05:48→09:25)
[2018-04-24] MEDS: Acetaminophen TAB* 325 MG PO SCH ×3 (05:59→21:27)
[2018-04-24 06:19] LABS: Hematocrit 33 % (35-47); Hemoglobin 10.8 g/dl (12.0-16.0); Mean Platelet Volume 9.7 fL (7.4-10.4); Platelet Count 133 10^3/ul (150-450)
[2018-04-24] MEDS: Magnesium Hydroxide LIQ* 30 ML UDC PO SCH ×2 (08:25→23:17)
[2018-04-24] MEDS: Docusate CAP* 100 MG PO SCH ×2 (08:25→23:17)
[2018-04-24] MEDS: Apixaban* 2.5 MG TAB PO SCH ×2 (08:28→23:17)
--- NOTE | 2018-04-24 09:55 | PN ---
Progress Note - Progress Note Date of Service: 04/24/18 SOAP: Subjective: Pt. is reporting severe pain R knee. Objective: Vital Signs: Temp Pulse Resp BP Pulse Ox 98.4 F 110 18 119/47 91 04/24/18 07:51 04/24/18 07:51 04/24/18 09:25 04/24/18 07:51 04/24/18 07:51 Laboratory Results - last 24 hr 04/24/18 05:14 Hgb 10.8 L Hct 33 L Plt Count 133 L MPV 9.7 RLE - dressing changed, inc c/d/i. moderate swelling, calf soft and tender to palpation. distally nvi. Assessment: 57 yo F pod 2 s/p RTKA Plan: wbat rle pt/ot eliquis bid plan to snf thursday - patient does not feel she could safely go home even with her there. tachycardia and calf tenderness - likely postop pain but will obtain ekg and US lle to exclude dvt
[2018-04-24] MEDS ORDERED: Morphine TAB Extended Release (*) 15 MG TAB.ER PO SCH (10:00)
[2018-04-24] MEDS: Albuterol HFA INHALER* 8 gm MDI INH SCH ×2 (20:06→20:22)
--- NOTE | 2018-04-24 20:34 | PN ---
Hospitalist Progress Note Date of Service: 04/24/18 CAT CALL (Rapid response) was called for change in mentation- Time: 8:12PM Upon arrival, Patient is having fever, tachycardic. NIH- score of 2, for missing the month and age. She is awake, alert, oriented X 2 (person/place) pupils slightly restricted but responsive to light. was not able to lift the right leg but recent surgery. Lying in bed, not in distress, No chest wall tenderness, regular tachycardia. diminished breath sounds. At this point, will get CT head, CBC, BMP, ABG, blood cultures, lactic acid, chest xray, urinalysis. Differentials include altered mental status caused by pain medications vs. CO2 narcosis, vs altered mental status due to fever/sepsis. Less likely stroke given able to move extremities, speech clear, no facial droop, NIH score of 2. Will monitor and await labs. Re-evaluated the patient at 9:20PM, She is more awake now. AA/O X 3, answering questions appropriately. Will d/c MS contin CXR reviewed- probable Right side Pneumonia. Will give aztreonam and flagyl. to get acetaminophen for fever. Will monitor the patient.
[2018-04-24 20:45] LABS: ABS Basophils 0.1 10^3/ul (0-0.2); ABS Eosinophils 0.1 10^3/ul (0-0.6); ABS Lymphocytes 1.9 10^3/ul (1.0-4.8); ABS Monocytes 0.9 10^3/ul (0-0.8); ABS Neutrophils 8.4 10^3/ul (1.5-7.7); ABS Nucleated RBC 0 10^3/ul; Eosinophil % 0.8 %; Hematocrit 31 % (35-47); Hemoglobin 10.4 g/dl (12.0-16.0); Lymphocyte % 16.5 %; Mean Corpuscular HGB Conc 33 g/dl (31-36); Mean Corpuscular Hemoglobin 27 pg (27-31); Mean Corpuscular Volume 81 fL (80-97); Mean Platelet Volume 8.8 fL (7.4-10.4); Nucleated Red Blood Cells % 0; Platelet Count 202 10^3/ul (150-450); Red Blood Count 3.82 10^6/ul (4.00-5.40); Red Cell Distribution Width 13 % (10.5-15); White Blood Count 11.4 10^3/ul (3.5-10.8)
[2018-04-24 21:02] LABS: BUN/Creatinine Ratio 15.6 (8-20); Calcium 8.6 mg/dL (8.6-10.3); EGFR African American 116.6 (>60); EGFR Non-African American 96.3 (>60); Potassium 3.7 mmol/L (3.5-5.0)
[2018-04-24] MEDS ORDERED: Naloxone* 0.4 MG/ML 1 ML VIAL IV PUSH ONE (21:26)
[2018-04-24] MEDS ORDERED: metroNIDAZOLE IV 500 MG/100ML* 500 MG/100 ML BAG IVPB SCH (23:00)
[2018-04-24] MEDS ORDERED: Aztreonam (*) 1 GM in NS 0.9% 50 ML* 50 ML IVPB SCH (23:00)
[2018-04-24] MEDS: Levothyroxine TAB* 25 MCG TAB PO SCH (23:17)
[2018-04-25] MEDS ORDERED: NS 0.9% 1000 ML* 1,000 ML IV SCH (00:15)
[2018-04-25 03:42] LABS: Urine Appearance Clear; Urine Bacteria Absent (Absent); Urine Bilirubin Negative (Negative); Urine Blood 1+ (Negative); Urine Color Straw; Urine Glucose Negative (Negative); Urine Ketones Negative (Negative); Urine Nitrite Negative (Negative); Urine Protein Negative (Negative); Urine Red Blood Cell 1+(3-5/hpf) (Absent); Urine Specific Gravity 1.006 (1.010-1.030); Urine Squamous Epithelial Cell Present (Absent); Urine Urobilinogen Negative (Negative); Urine White Blood Cell Trace(0-5/hpf) (Absent)
[2018-04-25] MEDS ORDERED: Scopolamine PATCH Remove* 1 NOTE MISC PATCH OFF ONE (05:44)
[2018-04-25] MEDS: Acetaminophen TAB* 325 MG PO SCH ×2 (05:50→13:52)
[2018-04-25 06:16] LABS: Hematocrit 31 % (35-47); Hemoglobin 10.6 g/dl (12.0-16.0); Mean Platelet Volume 8.8 fL (7.4-10.4); Platelet Count 201 10^3/ul (150-450)
[2018-04-25] MEDS ORDERED: Aztreonam (*) 1 GM in NS 0.9% 50 ML* 50 ML IVPB SCH (07:30)
[2018-04-25] MEDS ORDERED: metroNIDAZOLE IV 500 MG/100ML* 500 MG/100 ML BAG IVPB SCH (08:00)
[2018-04-25] MEDS: Apixaban* 2.5 MG TAB PO SCH (08:30)
[2018-04-25] MEDS: Docusate CAP* 100 MG PO SCH (08:30)
[2018-04-25] MEDS: Magnesium Hydroxide LIQ* 30 ML UDC PO SCH (08:30)
[2018-04-25] MEDS: oxyCODONE/Acetamin 5/325 MG* TAB PO PRN ×2 (08:43→17:21)
--- NOTE | 2018-04-25 12:58 | PN ---
Progress Note - Progress Note Date of Service: 04/25/18 SOAP: Subjective: Pt seen sitting comfortably in chair. She had CAT call last PM. Likely due to pain medications. States that she is feeling much better today. She would like to go home today. US and EKG from 04/24/18 both negative. Denies CP, SOB, F/C. Vital Signs: Temp Pulse Resp BP Pulse Ox 97.4 F 95 18 142/76 98 04/25/18 07:24 04/25/18 07:24 04/25/18 08:43 04/25/18 07:24 04/25/18 07:24 Laboratory Last Values WBC 11.4 10^3/ul (3.5-10.8) H 04/24/18 20:30 RBC 3.82 10^6/ul (4.00-5.40) L 04/24/18 20:30 Hgb 10.6 g/dl (12.0-16.0) L 04/25/18 05:56 Hct 31 % (35-47) L 04/25/18 05:56 MCV 81 fL (80-97) 04/24/18 20:30 MCH 27 pg (27-31) 04/24/18 20:30 MCHC 33 g/dl (31-36) 04/24/18 20:30 RDW 13 % (10.5-15) 04/24/18 20:30 Plt Count 201 10^3/ul (150-450) 04/25/18 05:56 MPV 8.8 fL (7.4-10.4) 04/25/18 05:56 Neut % (Auto) 73.8 % 04/24/18 20:30 Lymph % (Auto) 16.5 % 04/24/18 20:30 [place] % (Auto) 7.6 % 04/24/18 20:30 Eos % (Auto) 0.8 % 04/24/18 20:30 Baso % (Auto) 1.3 % 04/24/18 20:30 Absolute Neuts (auto) 8.4 10^3/ul (1.5-7.7) H 04/24/18 20:30 Absolute Lymphs (auto) 1.9 10^3/ul (1.0-4.8) 04/24/18 20:30 Absolute Monos (auto) 0.9 10^3/ul (0-0.8) H 04/24/18 20:30 Absolute Eos (auto) 0.1 10^3/ul (0-0.6) 04/24/18 20:30 Absolute Basos (auto) 0.1 10^3/ul (0-0.2) 04/24/18 20:30 Absolute Nucleated RBC 0 10^3/ul 04/24/18 20:30 Nucleated RBC % 0 04/24/18 20:30 Patient Temperature Not Reportable 04/24/18 20:51 ABG pH 7.45 (7.35-7.45) 04/24/18 20:51 ABG pH (Temp Correct) Not Reportable 04/24/18 20:51 ABG pCO2 40 mmHg (35-45) 04/24/18 20:51 ABG pCO2 (Temp Corrct Not Reportable 04/24/18 20:51 ABG pO2 69 mmHg (80-100) L 04/24/18 20:51 ABG pO2 (Temp Correct Not Reportable 04/24/18 20:51 ABG HCO3 27.6 mmol/L (19-31) 04/24/18 20:51 ABG O2 Saturation 97.3 % (94.0-98.0) 04/24/18 20:51 ABG Base Excess 3.5 mmol/L (-2.0-2.0) H 04/24/18 20:51 Respiration Rate Not Reportable 04/24/18 20:51 O2 Delivery Device N/c 04/24/18 20:51 Ventilator Type Not Reportable 04/24/18 20:51 Vent Mode Not Reportable 04/24/18 20:51 FiO2 Not Reportable 04/24/18 20:51 Inspiratory Time Not Reportable 04/24/18 20:51 PEEP Not Reportable 04/24/18 20:51 Pressure Support Not Reportable 04/24/18 20:51 Pressure Control Not Reportable 04/24/18 20:51 EPAP Not Reportable 04/24/18 20:51 IPAP Not Reportable 04/24/18 20:51 BiPAP Not Reportable 04/24/18 20:51 Sodium 136 mmol/L (135-145) 04/24/18 20:30 Potassium 3.7 mmol/L (3.5-5.0) 04/24/18 20:30 Chloride 102 mmol/L (101-111) 04/24/18 20:30 Carbon Dioxide 29 mmol/L (22-32) 04/24/18 20:30 Anion Gap 5 mmol/L (2-11) 04/24/18 20:30 BUN 10 mg/dL (6-24) 04/24/18 20:30 Creatinine 0.64 mg/dL (0.51-0.95) 04/24/18 20:30 Est GFR ( Amer) 116.6 (>60) 04/24/18 20:30 Est GFR (Non-Af Amer) 96.3 (>60) 04/24/18 20:30 BUN/Creatinine Ratio 15.6 (8-20) 04/24/18 20:30 Glucose 118 mg/dL (70-100) H 04/24/18 20:30 POC Glucose (mg/dL) 101 mg/dL (70-100) H 04/24/18 20:16 Lactic Acid 0.9 mmol/L (0.5-2.0) 04/24/18 20:30 Calcium 8.6 mg/dL (8.6-10.3) 04/24/18 20:30 Ammonia 50 mcmol/L (16-53) 04/24/18 22:05 Urine Color Straw 04/25/18 03:21 Urine Appearance Clear 04/25/18 03:21 Urine pH 6.0 (5-9) 04/25/18 03:21 Ur Specific Catherine 1.006 (1.010-1.030) L 04/25/18 03:21 Urine Protein Negative (Negative) 04/25/18 03:21 Urine Ketones Negative (Negative) 04/25/18 03:21 Urine Blood 1+ (Negative) A 04/25/18 03:21 Urine Nitrate Negative (Negative) 04/25/18 03:21 Urine Bilirubin Negative (Negative) 04/25/18 03:21 Urine Urobilinogen Negative (Negative) 04/25/18 03:21 Ur Leukocyte Esterase Negative (Negative) 04/25/18 03:21 Urine WBC (Auto) Trace(0-5/hpf) (Absent) 04/25/18 03:21 Urine RBC (Auto) 1+(3-5/hpf) (Absent) A 04/25/18 03:21 Ur Squamous Epith Cells Present (Absent) A 04/25/18 03:21 Urine Bacteria Absent (Absent) 04/25/18 03:21 Urine Glucose Negative (Negative) 04/25/18 03:21 Objective: A&Ox3, NAD, Dressing C/D/I, Calves soft and nontender, Mild edema RLE, Sensation intact to light touch, DP pulses 2+. Assessment: 57 yo female s/p Right TKA POD#3 Plan: OOB, PT/OT WBAT Pain control DVT prophylaxis - Eliquis BID DC plan - OK to D/C home today.
[2018-04-25] MEDS: Cyclobenzaprine TAB* 10 MG PO PRN (14:15)
[2018-04-25 16:17] VITALS: BP 154/80
[2018-04-25] MEDS: Albuterol HFA INHALER* 8 gm MDI INH SCH (21:06)
--- NOTE | 2018-04-25 23:30 | DS ---
DISCHARGE SUMMARY: DATE OF ADMISSION: 04/22/18 DATE OF DISCHARGE: 04/25/18 ATTENDING PHYSICIAN: Dr. Rowan Fuentes.* (DICTATED BY KARLA MILLARD) PRINCIPAL DIAGNOSIS: Right knee end-stage osteoarthritis. SECONDARY DIAGNOSIS: Hypothyroidism. PRINCIPAL PROCEDURE: Right total knee arthroplasty. REASON FOR HOSPITALIZATION: Ms. Florez is a 57-year-old female with complaints of right knee pain due to end-stage osteoarthritis. She has failed conservative treatment and elected to proceed with right total knee arthroplasty. HOSPITAL COURSE: The patient was admitted on 04/22/18 for anticipated right total knee replacement. She underwent surgery without any complications and was transferred to the recovery room and subsequently the surgical stay unit in a stable condition. The patient had daily hemoglobin and hematocrit drawn and her hemoglobin was 10.6, hematocrit was 31 on the day of discharge. She participated in physical therapy and occupational therapy and had done well with both. She has been on Eliquis 2.5 mg b.i.d. for DVT prophylaxis. On postop day #2, she did have swelling in her legs with a Doppler ultrasound was obtained as well as an EKG. The ultrasound was negative for DVT and the EKG showed that she was a little tachycardic. She does have a rapid response due to some confusion. This was most likely due to her pain medications. She was on a long-acting morphine. She had been taking Percocet and her pain has been well controlled on the day of discharge. She was alert and oriented x3. She is being discharged to home on 04/25/18 in a stable condition. DISCHARGE INSTRUCTIONS: Weightbearing as tolerated. Wound care, okay to shower on postop day #3. No bathing, swimming, submerging wound. Use gentle soap, pat dry. Cover with gauze, John wrap or tape. Call orthopedic office for increased drainage, redness, increased pain, or fever. Go to ER with shortness of breath or chest pain. Diet: Regular diet, increase fluids and fiber to prevent constipation. Continue to use stool softeners, call office if no bowel movement within 48 hours. Continue physical therapy and occupational therapy exercises as shown. Visiting home nurse to do wound checks. DVT prophylaxis of Eliquis 2.5 mg twice daily x1 month. Pain control with Percocet 5/325 mg 1 to 2 tabs by mouth every 4 to 6 hours as needed for pain. Antibiotics required prior to any dental work. Follow up with Dr. Fuentes within 10 to 14 days. Call for appointment. Please call our office with any questions or concerns at [phone]. KARLA MILLARD [id number]/[facility] #: [id number] JEANNIE
== END 2018-04-25 21:15 | disposition home health service (06) | DRG 470 ==
LOC: UNDOADMIN 10:15 → AA 10:15 → SSU 15:08 → AA 18:02
PROVIDERS: ADMIT Orthopaedic Surgery Adult Reconstructive Orthopaedic Surgery; ATTEND Orthopaedic Surgery Adult Reconstructive Orthopaedic Surgery
PROC: 0SRC069 Replacement of Right Knee Joint with Oxidized Zirconium on Polyethylene Synthetic Substitute, Cemented, Open Approach (ICD-10-PCS; principal; 2018-04-22 14:00)
DX: M17.11 Unilateral primary osteoarthritis, right knee (principal); E03.9 Hypothyroidism, unspecified; M25.461 Effusion, right knee; R29.702 NIHSS score 2; E66.9 Obesity, unspecified; I10 Essential (primary) hypertension; J45.909 Unspecified asthma, uncomplicated; M21.061 Valgus deformity, not elsewhere classified, right knee; M25.761 Osteophyte, right knee; M79.89 Other specified soft tissue disorders; R41.0 Disorientation, unspecified; R00.0 Tachycardia, unspecified; Z90.710 Acquired absence of both cervix and uterus; Z90.49 Acquired absence of other specified parts of digestive tract; Z87.891 Personal history of nicotine dependence; Z68.34 Body mass index [BMI] 34.0-34.9, adult; Z98.51 Tubal ligation status; Z88.0 Allergy status to penicillin
CPT/HCPCS: 36415; 70450; 71046; 80048; 81003; 81015; 82140; 82803; 83605; 85014; 85018; 85025; 85049; 87040; 87086; 88305; 88311; 93005; 94640; A9270-GY; C1776; G8978-GP-CL; G8979-GP-CI; G8987-GO-CL; G8988-GO-CI; J0360; J0780; J1885; J2250; J2270; J2310; J2704; J2795; J3010; J3490; J8540

== ENCOUNTER 2018-12-30 05:46 | Inpatient (IN) | payer MEDICARE, MEDICAID ==
--- NOTE | 2018-12-21 03:29 | HP ---
PREOPERATIVE HISTORY AND PHYSICAL: DATE OF ADMISSION: 12/30/18 SURGEON: Dr. Rowan Fuentes.* (DICTATED BY KARLA WARREN) PROCEDURE: Left total knee arthroplasty. CHIEF COMPLAINT: Left knee pain. HISTORY OF PRESENT ILLNESS: Ms. Florez is a 58-year-old female who had a successful right total knee arthroplasty in March and has also been followed for left knee osteoarthritis by Dr. Fuentes. The pain in the left knee has increased over the years to the point that she is ambulating with a cane due to pain and is unable to walk more than a block. She has tried anti-inflammatories , steroid injections, physical therapy, and other conservative measures and is seeking surgical intervention at this time. PAST MEDICAL HISTORY: Significant for hypothyroidism, morbid obesity, and scoliosis. No history of DVT or pulmonary embolism. PAST SURGICAL HISTORY: Hysterectomy, cholecystectomy, and tubal ligation. She denies anesthetic complications with these procedures. CURRENT MEDICATIONS: 1. Flexeril 5 mg p.o. p.r.n. 2. Levothyroxine 25 mcg p.o. daily. 3. Ventolin inhaler p.r.n. asthma. ALLERGIES: PENICILLIN, unknown reaction. FAMILY HISTORY: Significant for cancer, but no diabetes or heart disease. SOCIAL HISTORY: She lives with her partner, who will be taking care of her postoperatively. She has a history of 25 years of smoking, but quit 7 years ago. She denies recreational drug use or alcohol use. REVIEW OF SYSTEMS: Fourteen systems were reviewed with the patient today. They are positive for left knee pain, chronic back pain, low thyroid function, and all systems are otherwise negative. PHYSICAL EXAMINATION GENERAL: She is a well-developed, well-nourished female, seated on exam table, in no acute distress, with appropriate affect. VITAL SIGNS: Height 66 inches, weight 208 pounds. Pulse 93, blood pressure 120 /84. HEENT: Normocephalic, atraumatic. Hearing and vision are grossly intact, with extraocular movements intact. NECK: The trachea is midline and symmetrical. CHEST: Lungs are clear to auscultation. No wheezes, rales, or rhonchi appreciated. CARDIO: Regular rate and rhythm. Normal S1, S2. No murmurs, rubs, or gallops noted. ABDOMEN: Nondistended. Bowel sounds present. MUSCULOSKELETAL: Left lower extremity: Skin is dry and intact without abrasions or open wounds. There is a moderate effusion at the knee with tenderness along the medial and lateral joint lines. She extends the knee to 10 degrees and flexes to 100 with pain and patellofemoral crepitus, which is quite severe. No varus or valgus instability. She has 5/5 strength against resistance in 4 planes in the left ankle with intact sensation and 2+ dorsalis pedis pulse. IMAGING: Radiographs performed previously show severe end-stage arthritis of the left knee joint with [id number] contact and bony deformity of the patellofemoral compartment. There is tricompartmental joint space narrowing, osteophyte formation, and subchondral sclerosis. ASSESSMENT: Severe end-stage left knee osteoarthritis. PLAN: Left total knee arthroplasty with Dr. Fuentes. The patient's questions were answered and she would like to proceed. Dr. Fuentes reviewed the potential risks and complications at today's visit. The patient will follow up postoperatively and pain medication will be dispensed postoperatively as well. KARLA WARREN [id number]/[facility] #: [id number] JEANNIE
[~2018-12-30 05:46] MED LIST changes: -Dexamethasone TAB* 4 MG PO ONE; -DiMENhydriNATE IV* 50 MG/ML VIAL IV PUSH PRN; -Famotidine IV* 10 MG/ML 2 ML (20 mg) IV ONE; -Gabapentin CAP(*) 300 MG PO ONE; -Lactated Ringers 1000 ML Bag* 1,000 ML IV SCH; +Levalbuterol 0.63MG/3ML NEB* UNIT OF USE INH ONE; -Morphine VIAL* 4 MG/ML VIAL (1 ml vial) IV PRN; -Naloxone* 0.4 MG/ML 1 ML VIAL IV PRN; -Ondansetron TAB* 4 MG PO ONE; -PROCHLORPERAZINE INJ 5 MG/ML 2 ML VIAL IV PRN; -Scopolamine 1.5 mg* PATCH TRANSDERM PRN; -fentaNYL* 50 MCG/ML 2 ML VIAL (100 MCG VIAL) IV PRN; -oxyCODONE/Acetamin 5/325 MG* TAB PO PRN
--- OUTSIDE RECORDS SUMMARY | 2018-12-30 05:49 | XMS REPORT | Continuity of Care Document ---
:1960 External Reference #:[id number] Author Name Rowan Fuentes M.D. 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 Onset: 05/07/2018 Localized, primary osteoarthritis Rowan Fuentes M.D. Onset: 03/12/2015 Social History Type Date Description Comments Sex Unknown ETOH Use Denies alcohol use Tobacco Use Start: Unknown Patient has never smoked Smoking Status Reviewed: 12/17/18 Patient has never smoked Exercise Type/Frequency Does not exercise Allergies, Adverse Reactions, Alerts Active Allergies Reaction Severity Comments Date Penicillin 12/20/2012 Medications Active Medications SIG Qnty Indications Ordering Date Provider Eliquis 1 tab by mouth 60tabs Rowan Fuentes, 04/25/2018 2.5mg Tablets twice a day for M.D. 30 days Oxycodone-Acetaminophen 1 tabs by mouth 60tabs Rowan Fuentes, 04/25/2018 every 12 hours M.D. 5-325mg Tablets for pain Cyclobenzaprine HCL 1 tablet by Unknown 5mg mouth three Tablets times a day as needed Levothyroxine Sodium 1 by mouth Unknown 25mcg every day Tablets Ventolin HFA 2 puffs by Unknown 108(90Base) mouth four mcg/Act Aerosol times a day as needed Advil prn Unknown Immunizations Description No Information Available Vital Signs Date Vital Result Comment 12/17/2018 8:39am Height 66 inches 5'6" Weight 208.00 lb Heart Rate 93 /min BP Systolic 120 mmHg BP Diastolic 84 mmHg Body Temperature 96.8 F Pain Level 0 BMI (Body Mass Index) 33.6 kg/m2 09/06/2018 2:32pm Height 66 inches 5'6" Weight 202.00 lb Heart Rate 104 /min BP Systolic 132 mmHg BP Diastolic 86 mmHg Body Temperature 97.0 F Pain Level 3 BMI (Body Mass Index) 32.6 kg/m2 Results Description No Information Available Procedures Description No Information Available Medical Devices Description No Information Available Encounters Type Date Location Provider Dx Diagnosis Office Visit 09/06/2018 Orth[facility] Rowan Fuentes, M25.562 Pain in left knee 2:[facility] M25.462 Effusion, left knee M17.12 Unilateral primary osteoarthritis, left knee Z96.651 Presence of right artificial knee joint Assessments Date Code Description Provider 12/17/2018 M25.562 Pain in left knee Rowan Fuentes M.D. 12/17/2018 M17.12 Unilateral primary osteoarthritis, left knee Rowan Fuentes M.D. 09/06/2018 M25.562 Pain in left knee Rowan Fuentes M.D. 09/06/2018 M25.462 Effusion, left knee Rowan Fuentes M.D. 09/06/2018 M17.12 Unilateral primary osteoarthritis, left knee Rowan Fuentes M.D. 09/06/2018 Z96.651 Presence of right artificial knee joint Rowan Fuentes M.D. 07/05/2018 Z96.651 Presence of right artificial knee joint Rowan Fuentes M.D. 07/05/2018 Z47.1 Aftercare following joint replacement surgery Rowan Fuentes M.D. Plan of Treatment Future Appointment(s):01/10/2019 1:45 pm - Rowan Fu[facility] M[facility] at [facility]12/30/2018 8:00 am - Rowan Fu[facility] M[facility] at [facility]12/17/2018 - Rowan Fuentes M.D.M25.562 Pain in left kneeNew Xrays:Knee Left 4+ VWS, Ordered: 12/17/18Follow up:Follow up: 10-14 days [id number] Unilateral primary osteoarthritis, left kneeNew Xrays:Knee Left 4+ VWS, Ordered: 12/17/18 Functional Status Description No Information Available Mental Status Description No Information Available Referrals Description No Information Available
[2018-12-30] MEDS ORDERED: Dexamethasone IV* 4 MG/ML 1 ML (4 MG) IV SLOW PU ONE (06:00)
[2018-12-30] MEDS ORDERED: Acetaminophen IV 1GM/100ML * 1,000 MG/100 ML VIAL IVPB ONE (06:00)
[2018-12-30] MEDS ORDERED: celeCOXIB CAP* 200 MG PO ONE (06:00)
[2018-12-30] MEDS ORDERED: Lactated Ringers 1000 ML Bag* 1,000 ML IV SCH (06:00)
[2018-12-30] MEDS ORDERED: Gabapentin CAP(*) 300 MG PO ONE (06:00)
[2018-12-30] MEDS ORDERED: Famotidine IV* 10 MG/ML 2 ML (20 mg) IV ONE (06:00)
[2018-12-30] MEDS ORDERED: ROPIVACAINE 5 MG/ML 30 ML BTL (0.5%) ONE ×2 (06:46→07:25)
[2018-12-30] MEDS ORDERED: Dexamethasone IV* 4 MG/ML 1 ML (4 MG) ONE (06:51)
[2018-12-30] MEDS ORDERED: Clindamycin 900 MG/D5W BAG(*) 900 MG/50 ML BAG IVPB ONE (06:52)
[2018-12-30] MEDS ORDERED: Levalbuterol 0.63MG/3ML NEB* UNIT OF USE INH ONE (06:52)
[2018-12-30] MEDS ORDERED: celeCOXIB CAP* 200 MG ONE (06:52)
[2018-12-30] MEDS ORDERED: Gabapentin CAP(*) 300 MG ONE (06:52)
[2018-12-30] MEDS ORDERED: Acetaminophen IV 1GM/100ML * 100 ML ONE (06:52)
[2018-12-30] MEDS ORDERED: Famotidine IV* 10 MG/ML 2 ML (20 mg) ONE (06:53)
[2018-12-30] MEDS ORDERED: Atracurium* 10 MG/ML 10 ML VIAL ONE (07:20)
[2018-12-30] MEDS ORDERED: Phenylephrine 10 MG/ML VIAL* 1 ML VIAL ONE (07:20)
[2018-12-30] MEDS ORDERED: Midazolam* 1 MG/ML 5 ML VIAL (5 MG) ONE (07:20)
[2018-12-30] MEDS ORDERED: fentaNYL* 50 MCG/ML 5 ML VIAL (250 MCG VIAL) ONE (07:20)
[2018-12-30] MEDS ORDERED: Propofol* 10 MG/ML 20 ML BTL ONE (07:20)
[2018-12-30] MEDS ORDERED: Ondansetron INJ* 2 MG/ML VIAL ONE (07:20)
[2018-12-30] MEDS ORDERED: EPHEDrine (Pressors)* 50 MG/ML VIAL ONE (07:47)
[2018-12-30] MEDS ORDERED: KETAMINE HCL* 50 MG/ML 10 ML VIAL ONE (08:00)
[2018-12-30] MEDS ORDERED: fentaNYL* 50 MCG/ML 2 ML VIAL (100 MCG VIAL) ONE ×3 (08:44→12:16)
[2018-12-30] MEDS ORDERED: Naloxone* 0.4 MG/ML 1 ML VIAL IV PRN (09:11)
[2018-12-30] MEDS ORDERED: DiMENhydriNATE IV* 50 MG/ML VIAL IV PUSH PRN (09:11)
[2018-12-30] MEDS ORDERED: Ondansetron INJ* 2 MG/ML VIAL IV PRN ×2 (09:11→11:01)
[2018-12-30] MEDS ORDERED: Scopolamine 1.5 mg* PATCH TRANSDERM PRN (09:11)
[2018-12-30] MEDS ORDERED: HYDROmorphone INJ1* 1 MG/ML SYRINGE IV PRN (09:11)
[2018-12-30] MEDS ORDERED: Acetaminophen TAB* 325 MG PO PRN (11:01)
[2018-12-30] MEDS ORDERED: Magnesium Hydroxide LIQ* 30 ML UDC PO PRN (11:01)
[2018-12-30] MEDS ORDERED: diPHENhydraMINE PO* 25 MG PO PRN (11:01)
[2018-12-30] MEDS ORDERED: diPHENhydraMINE IV* 50 MG/ML 1 ml VIAL (BENADRYL) IV PRN (11:01)
[2018-12-30] MEDS ORDERED: Morphine INJ* 2 MG/ML 1 ML SYRINGE (TWO MG - NEW SYRINGE VERSION) IV PRN (11:01)
[2018-12-30] MEDS ORDERED: Ondansetron ODT TAB* 4 MG PO PRN (11:01)
[2018-12-30] MEDS: fentaNYL* 50 MCG/ML 2 ML VIAL (100 MCG VIAL) IV PRN ×3 (11:18→12:17)
[2018-12-30] MEDS ORDERED: HYDROmorphone INJ1* 1 MG/ML SYRINGE ONE (12:06)
[2018-12-30] MEDS: Lactated Ringers 1000 ML Bag* 1,000 ML IV SCH (13:39)
[2018-12-30] MEDS: Clindamycin 600 MG IVPREMIX(* 600 MG/50 ML SDV IV SCH (16:56)
--- NOTE | 2018-12-30 17:13 | PN ---
Progress Note - Progress Note Date of Service: 12/30/18 - Post-op Note: Post-op check s/p Left TKA: Patient resting comfortably in bed. She denies CP or SOB. Her pain is well managed. She has not been OOB with PT yet. She actively DP/PF with intact sensation and 2+ DP pulse. Continue pain management and PT. We appreciate medicine's guidance. We will monitor.
--- NOTE | 2018-12-30 18:08 | OP ---
Operative Report - Blank - Operative Report Date of Operation: 12/30/18 Note: TREASURE BOWEN 1960 Date of Surgery: 12/30/18 Rowan Fuentes MD Natural Gas Trader: Olga ACOSTA did help throughout the procedure with preparation of the knee, wound retraction, manipulation of the knee, and wound closure. Anesthesiologist: Olga Rebollar MD Anesthesia Type: Spinal Preoperative Diagnosis: Left severe degenerative osteoarthritis of the knee Postoperative Diagnosis: As above Procedure Performed: Left Total Knee Arthroplasty Tourniquet time: 62 minutes Complications: None Specimen: Bone and cartilage from the left knee joint sent to pathology. Hardware Used: Cemented Pavon [employer] Nephew total knee hardware was used - For the femur a size 4 left narrow oxinium legion posterior stabilized femoral component, for the tibia a size 3 left david II tibial baseplate, for the insert a size 11mm 3-4 posterior stabilized articular polyethylene insert, and for the patella a size 29 3-peg all poly patella. [employer] robotic navigation system was used. Brief History/Indication: TREASURE BOWEN was known in clinic and had a history of severe left knee pain and swelling. She failed conservative treatment with anti-inflammatories, pain pills, intra-articular injections and physical therapy. She elected to undergo left total knee arthroplasty due to continued pain and decreased quality of life. Radiographs showed severe end stage osteoarthritis of the knee with bone on bone contact. Informed consent was obtained from the patient. She understood the risks of surgery included but were not limited to: bleeding, infection, damage to nearby structures, intraoperative fracture, nerve palsy, failure of the hardware, early loosening, knee stiffness or loss of motion, anesthesia complications, stroke, heart attack , blood clot and . She understood the increased risk of pin site infection and fracture with the navio system. She wished to proceed. Intra-Operative Findings: Intraoperatively the patient was noted to have severe loss of cartilage in all 3 compartments of the knee. Description of the Procedure: TREASURE BOWEN was identified in the preanesthesia unit. Her left knee was marked as the correct operative side. Informed consent was signed and placed in the chart. The patient was taken to the operating room and placed under anesthesia without complication. A guaman catheter was placed. A tourniquet was placed on the left thigh. The left lower extremity was prepped and draped in the usual sterile fashion. Preoperative time-out was made to correctly identify the patient, side and site. Appropriate intraoperative antibiotics were given within one hour of incision. Tourniquet was inflated. A midline incision was made and carried sharply down to the extensor mechanism. A new 10 blade was used to make a standard medial parapatellar arthrotomy. The patella was subluxed laterally. Electrocautery was used to dissect soft tissue off the superomedial tibia to the midsagittal plane. The knee was flexed up. The anterior horn of the lateral meniscus and the ACL/PCL were sharply incised. The checkpoint screw was placed on the femur and the tibia. Two pins were placed in the femur and two in the tibia. [employer] robotic navigation system was used to enter anatomic points of reference. The hardware size and placement was determined using the [employer] system. [employer] robotic fabian was used to make the distal femoral cut. The external rotation guide was pinned on the distal femur and the distal femur was sized to a size 4. The size 4 multi-cutting jig was pinned on the distal femur. The oscillating saw was used to make the appropriate 4 chamfer cuts. Next the PCL was completely released. The extramedullary tibial cutting guide was pinned on the proximal tibia using the angle guide from the [employer] robotic system. The oscillating saw was used to make the proximal tibial cut perpendicular to the mechanical axis of the tibia. The bone was carefully removed. The knee was brought out into full extension. The spacer block was placed and had excellent fit with the knee in full extension. The medial and lateral ligaments were well balanced. The flexion and extension gaps were well balanced. The knee was flexed up. Lamina kinder teacher was placed both medially and laterally. Any remaining meniscus was removed with electrocautery. Curved osteotome was used to remove any posterior osteophytes. The tibial tray and drop osiris were placed and confirmed a satisfactory tibial cut. The size 4 left narrow femoral trial was impacted onto the distal femur. This trial had excellent fit and stability. The box for the posterior stabilized implant was prepared using a box cut osteotome and a reamer. Next a tibial tray trial and 11 mm insert trial was placed. The knee was taken through a range of motion and had full extension to 130 degrees of flexion. Patellofemoral tracking was satisfactory. Final navio checkpoints were entered into the system. The 4 pins and 2 screws were carefully removed. The patella was inverted and sized to a size 29. Three peg holes were drilled through the size 29 drill guide. The trial patella was placed and the knee was taken through a range of motion. There was satisfactory patellofemoral tracking. All trials were removed. The tibia was subluxed anteriorly and sized to a size 3. The proximal tibial was prepared with a size 3 keel punch. All bony cut surfaces were irrigated with sterile saline and dried. Final implants were cemented into place starting with the tibia, followed by the femur, and last the patella. A 9 mm insert trial was placed and the knee was brought into full extension. Tourniquet was turned down and the knee was copiously irrigated with sterile saline. Electrocautery was used to obtain meticulous hemostasis. Once the cement had fully cured, the insert trial was removed. Any excess cement was removed from around the hardware and capsule. Final insert chosen was a 11 mm posterior stabilized David II articular insert size 3-4. Stability of the insert was checked and noted to be stable. The extensor mechanism was closed using number 1 vicryls. The rest of the incision was closed in a layered fashion using 0 and 2-0 vicryls. The skin was closed using 3-0 nylon suture. Sterile xeroform, 4x4s and webril were used to cover the incision. John wrap and cold pack were used to cover the dressings. The patients anesthesia was reversed without difficulty. She was taken to the PACU in stable condition. Intended weight-bearing will be as tolerated.
[2018-12-30] MEDS: Albuterol HFA INHALER* 8 gm MDI INH SCH (20:16)
[2018-12-30] MEDS: Levothyroxine TAB* 25 MCG TAB PO SCH (21:50)
[2018-12-30] MEDS: Docusate CAP* 100 MG PO SCH (21:51)
[2018-12-30] MEDS: Magnesium Hydroxide LIQ* 30 ML UDC PO SCH (21:51)
[2018-12-30] MEDS: oxyCODONE/Acetamin 5/325 MG* TAB PO PRN (22:02)
[2018-12-30] MEDS: Cyclobenzaprine TAB* 10 MG PO PRN (22:03)
[2018-12-31] MEDS: Clindamycin 600 MG IVPREMIX(* 600 MG/50 ML SDV IV SCH ×2 (00:03→07:16)
[2018-12-31] MEDS: Lactated Ringers 1000 ML Bag* 1,000 ML IV SCH (02:05)
[2018-12-31] MEDS: Cyclobenzaprine TAB* 10 MG PO PRN ×3 (04:42→23:12)
[2018-12-31] MEDS: oxyCODONE/Acetamin 5/325 MG* TAB PO PRN ×3 (04:42→15:46)
[2018-12-31 06:05] LABS: Hematocrit 31 % (35-47); Hemoglobin 10.6 g/dL (12.0-16.0); Platelet Count 185 10^3/uL (150-450)
[2018-12-31 06:24] LABS: BUN/Creatinine Ratio 25.4 (8-20); Calcium 8.9 mg/dL (8.6-10.3); EGFR Non-African American 85.2 (>60); Potassium 4.7 mmol/L (3.5-5.0)
[2018-12-31] MEDS: Apixaban* 2.5 MG TAB PO SCH ×2 (08:56→21:28)
[2018-12-31] MEDS: Vitamin THERAPEUTIC TAB PO SCH (08:56)
[2018-12-31] MEDS: Docusate CAP* 100 MG PO SCH ×2 (09:02→21:30)
[2018-12-31] MEDS: Magnesium Hydroxide LIQ* 30 ML UDC PO SCH ×2 (09:02→21:30)
--- NOTE | 2018-12-31 10:47 | PN ---
Progress Note - Progress Note Date of Service: 12/31/18 Note: POD 1 s/p left TKA: patient seated in joint chair. She has been OOB with PT and felt quite unstable. She has 8/10 pain with movement. She denies SOB, CP or dizziness. +DF/PF with intact sensation and 2+ DP pulses. Left foot is warm, calf is soft and non-tender. Patient encouraged to use pain medication in order to progress with PT. We will monitor and expect d/c tomorrow.
[2018-12-31] MEDS: oxyCODONE TAB* 5 MG TAB PO PRN ×2 (12:03→20:05)
[2018-12-31] MEDS: Albuterol HFA INHALER* 8 gm MDI INH SCH (19:31)
[2018-12-31] MEDS: Levothyroxine TAB* 25 MCG TAB PO SCH (21:28)
[2019-01-01] MEDS: oxyCODONE TAB* 5 MG TAB PO PRN ×2 (00:06→04:09)
--- NOTE | 2019-01-01 07:21 | PN ---
Progress Note - Progress Note Date of Service: 01/01/19 SOAP: Subjective: [Pt reports doing better with pain but does not feel ready to go home. Would like to do PT today and go home tomorrow. Denies CP, SOB, N/V, calf pain. Has not had BM yet.] Objective: [A and O x3, NAD Left knee dressing changed. Surgical wounds benign. Calves soft, NT. Distal gross motor and NV function intact. Vital Signs: Temp Pulse Resp BP Pulse Ox 98.2 F 106 16 143/82 98 01/01/19 03:53 01/01/19 03:53 01/01/19 06:42 01/01/19 03:53 01/01/19 03:53 ] Assessment: [s/p L TKA POD # 2] Plan: [Con't PT Eliquis for DVT prophylaxis Plan for D/C tomorrow]
[2019-01-01 08:34] LABS: Hematocrit 34 % (35-47); Hemoglobin 11.1 g/dL (12.0-16.0); Mean Platelet Volume 8.8 fL (7.4-10.4); Platelet Count 188 10^3/uL (150-450)
[2019-01-01] MEDS: Apixaban* 2.5 MG TAB PO SCH ×2 (09:44→22:00)
[2019-01-01] MEDS: Vitamin THERAPEUTIC TAB PO SCH (09:44)
[2019-01-01] MEDS: Magnesium Hydroxide LIQ* 30 ML UDC PO SCH ×2 (09:45→23:09)
[2019-01-01] MEDS: Docusate CAP* 100 MG PO SCH ×2 (09:45→23:08)
[2019-01-01] MEDS ORDERED: Bisacodyl SUPP* 10 MG SUPP PR PRN (11:01)
[2019-01-01] MEDS: oxyCODONE/Acetamin 5/325 MG* TAB PO PRN ×2 (16:59→23:36)
[2019-01-01] MEDS: Albuterol HFA INHALER* 8 gm MDI INH SCH (19:23)
[2019-01-01 19:31] LABS: ABS Basophils 0.1 10^3/ul (0-0.2); ABS Lymphocytes 1.8 10^3/ul (1.0-4.8); ABS Monocytes 0.8 10^3/ul (0-0.8); ABS Neutrophils 9.7 10^3/ul (1.5-7.7); Eosinophil % 0.2 %; Hematocrit 31 % (35-47); Hemoglobin 10.6 g/dL (12.0-16.0); Lymphocyte % 14.6 %; Mean Corpuscular HGB Conc 34 g/dL (31-36); Mean Corpuscular Hemoglobin 28 pg (27-31); Mean Corpuscular Volume 81 fL (80-97); Mean Platelet Volume 8.9 fL (7.4-10.4); Platelet Count 204 10^3/uL (150-450); Red Blood Count 3.85 10^6 /uL (3.70-4.87); Red Cell Distribution Width 14 % (10-15); White Blood Count 12.4 10^3/uL (3.5-10.8)
[2019-01-01 19:47] LABS: Albumin 3.8 g/dL (3.2-5.2); Albumin/Globulin Ratio 1.4 (1-3); BUN/Creatinine Ratio 20.6 (8-20); C Reactive Protein 123.78 mg/L (<8.01); EGFR African American 118.3 (>60); EGFR Non-African American 97.8 (>60); Globulin 2.8 g/dL (2-4); Potassium 3.8 mmol/L (3.5-5.0); Total Bilirubin 0.8 mg/dL (0.2-1.0); Total Protein 6.6 g/dL (6.4-8.9)
[2019-01-01 20:13] LABS: TSH (Thyroid Stimulating Horm) 2.62 mcIU/mL (0.34-5.60)
--- NOTE | 2019-01-01 22:47 | CONS ---
CONSULTATION REPORT: DATE OF CONSULT: 01/01/19 CONSULTING PROVIDER: Greg Anna MD REFERRING PROVIDER: KARLA Madison, of Orthopedics. REASON FOR CONSULT: Concern by nursing staff about patient's tachycardia, flushed face, flat affect, and low-grade temperatures. HISTORY OF PRESENT ILLNESS: Lexi Florez is a 58-year-old female postoperative day #2 for left elective total knee replacement with Dr. Fuentes, with a past medical history of hypothyroidism, morbid obesity, scoliosis, chronic back pain. Her course has been relatively uncomplicated, but she has had intermittent tachycardia including to low 110s as high as 120 this afternoon and she states her pain is poorly controlled at the moment. Her T- max was 99.4 at 12:49. She worked with Physical Therapy twice today and had significant pain each time. The wound was evaluated this morning by Orthopedics and thought not to be concerning. Labs on consultation are still pending as is chest x-ray. She does have some pain in her left lateral ribs with deep breath and some pain on the right upper quadrant on palpation. She denies any cough, shortness of breath, chest pain, abdominal pain, diarrhea, constipation, headache, muscle aches, rashes, or neck stiffness. PAST MEDICAL HISTORY: Hypothyroidism, morbid obesity, scoliosis, chronic back pain. PAST SURGICAL HISTORY: Includes cholecystectomy, hysterectomy, right knee replacement. CURRENT MEDICATIONS: Include: 1. Acetaminophen 650 mg p.o. q.8 hours p.r.n. 2. Albuterol 2 puffs inhaled at bedtime. 3. Eliquis 2.5 mg p.o. b.i.d. 4. Dulcolax suppository 10 mg per rectum daily p.r.n. 5. Flexeril 10 mg p.o. q.6 hours p.r.n. 6. Benadryl 25 mg p.o. q.6 hours p.r.n. 7. Docusate 100 mg p.o. b.i.d. 8. Lactulose 30 cc p.o. b.i.d. p.r.n. 9. Levothyroxine 25 mcg p.o. at 2000 daily. 10. Lactated Ringers at 100 cc an hour. 11. Magnesium hydroxide 30 mL p.o. q.6 hours p.r.n. and 30 mL p.o. b.i.d. 12. Morphine 2 mg IV q.4 hours p.r.n. 13. Zofran 4 mg IV q.6 hours p.r.n. versus ODT tab q.6 hours p.r.n. 14. Oxycodone 10 mg p.o. q.4 hours p.r.n. and oxycodone 1 tab p.o. q.6 hours versus 2 tabs p.o. q.4 hours p.r.n. for severe pain. 15. Scopolamine 1.5 mg transdermal patch daily. 16. Theragran vitamins p.o. daily. ALLERGIES: PENICILLIN (unknown, as a child). FAMILY HISTORY: Significant for cancer. No cardiovascular disease. SOCIAL HISTORY: The patient lives with her partner. She is a former smoker of 25 years, quit 7 years ago. No alcohol or drug use. 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 REVIEW OF SYSTEMS: Complete 14-point review of systems was negative except as per HPI. She has a known history of snoring. She at this time is being evaluated by sleep study for obstructive sleep apnea. PHYSICAL EXAM: General Appearance: No acute distress, but pekid looking. Vital Signs: Current temperature 99.0, T-max 99.4, pulse rate 115, respiratory rate 14, satting 96% on room air, blood pressure 147/62. HEENT: Normocephalic , atraumatic. Pupils are equal, round, and reactive to light. Extraocular muscles intact. No scleral icterus. Neck: Supple. No cervical lymphadenopathy. Lungs: Anteriorly clear to auscultation bilaterally with no wheezing, rales, or rhonchi. Cardiovascular: Tachycardic, regular rate. No murmurs, rubs, or gallops. Abdomen: She has some mild tenderness in the right upper quadrant. No rebound, no guarding. Soft, nondistended, but obese. Extremities: Warm, well perfused. No peripheral edema. Left knee wrapped with a cooling device. I peeked under the superior and inferior John wraps and found no erythema or discharge. She does have some tenderness with manipulation of cooling device or the knee in any way. DIAGNOSTIC STUDIES/LAB DATA: Hemoglobin 11.1, hematocrit 34, platelets 188. BMP yesterday demonstrated glucose of 145. Imaging: Knee x-ray demonstrated status post left knee arthroplasty. ASSESSMENT AND PLAN: Lexi Florez is a 58-year-old female with past medical history significant for hypothyroidism, morbid obesity, chronic back pain, presenting on postoperative day #2 left total knee arthroplasty. Reason for consult was tachycardia, elevated nonfebrile temperatures, T-max 99.4, flushed face, and flat affect. I am adding on a CBC, CMP, lactic acid, blood culture, TSH, D-dimer, urinalysis to evaluate for potential sources of SIRS/sepsis. I am also getting a portable chest x-ray given her some pleuritic pain on the left side. She has not been able to use the incentive spirometry with deep volumes. Actually, it seems like a lot of her symptoms could be explained with poorly controlled pain. She has only got one dose of 10 mg oxycodone back at 4 a.m. and then 1 Percocet all day long at 5 p.m. She also had some mild right upper quadrant tenderness to palpation. She is status post cholecystectomy. She did have normal LFTs on preadmission testing back on 12/07/18. We will follow up the CMP. She has had no bowel movements here - had a large one the day prior to admission. Constipation could be playing a role in her abdominal pain and we will continue the docusate 100 mg p.o. b.i.d., lactulose 30 mL p.o. b.i.d. p.r.n., Dulcolax suppository daily p.r.n., and would add Senokot. For DVT prophylaxis, she is on Eliquis 2.5 mg p.o. b.i.d. For her hypothyroidism, continue her levothyroxine 25 mcg p.o. daily and follow up her TSH. For chronic back pain, continue her cyclobenzaprine 10 mg p.o. q.6 hours p.r.n. and the pain meds for the knee. Continue to work with Physical Therapy. We will continue to follow. Thank you for this interesting consult. [id number]/[facility] #: [id number] JEANNIE
[2019-01-01] MEDS: Levothyroxine TAB* 25 MCG TAB PO SCH (23:10)
[2019-01-02 04:28] LABS: Urine Appearance Cloudy; Urine Bacteria 3+ (Absent); Urine Bilirubin Negative (Negative); Urine Blood 3+ (Negative); Urine Color Yellow; Urine Glucose Negative (Negative); Urine Ketones 1+ (Negative); Urine Nitrite Positive (Negative); Urine Protein Negative (Negative); Urine Red Blood Cell 3+(>10/hpf) (Absent); Urine Specific Gravity 1.016 (1.010-1.030); Urine Squamous Epithelial Cell Present (Absent); Urine Urobilinogen Negative (Negative); Urine White Blood Cell 3+(>20/hpf) (Absent)
[2019-01-02] MEDS: Cyclobenzaprine TAB* 10 MG PO PRN (05:49)
[2019-01-02 06:08] LABS: ABS Basophils 0.1 10^3/ul (0-0.2); ABS Eosinophils 0.1 10^3/ul (0-0.6); ABS Lymphocytes 1.7 10^3/ul (1.0-4.8); ABS Neutrophils 9.5 10^3/ul (1.5-7.7); Eosinophil % 0.5 %; Hematocrit 34 % (35-47); Hemoglobin 11.3 g/dL (12.0-16.0); Lymphocyte % 13.7 %; Mean Corpuscular HGB Conc 34 g/dL (31-36); Mean Corpuscular Hemoglobin 27 pg (27-31); Mean Corpuscular Volume 81 fL (80-97); Mean Platelet Volume 8.7 fL (7.4-10.4); Platelet Count 221 10^3/uL (150-450); Red Blood Count 4.15 10^6 /uL (3.70-4.87); Red Cell Distribution Width 14 % (10-15); White Blood Count 12.4 10^3/uL (3.5-10.8)
[2019-01-02] MEDS: Docusate CAP* 100 MG PO SCH ×2 (07:32→21:04)
[2019-01-02] MEDS: Magnesium Hydroxide LIQ* 30 ML UDC PO SCH ×2 (07:32→21:04)
[2019-01-02] MEDS: Vitamin THERAPEUTIC TAB PO SCH (08:27)
[2019-01-02] MEDS: Apixaban* 2.5 MG TAB PO SCH ×2 (08:27→21:04)
[2019-01-02] MEDS: oxyCODONE TAB* 5 MG TAB PO PRN ×2 (08:27→15:12)
[2019-01-02] MEDS: cefTRIAXone(*) 1 GM in NS 0.9% 50 ML* 50 ML IVPB SCH (09:22)
--- NOTE | 2019-01-02 11:07 | PN ---
Progress Note - Progress Note Date of Service: 01/02/19 SOAP: Subjective: [Pt reports feeling better today than yesterday. Has been progressing with PT. Denies CP, SOB, dizziness. At rest rates L knee pain 5/10. Would like to go home ] Objective: [A and O x 3, NAD. Being assisted back to chair upon my visit. Talkative with appropriate affect. L knee dressing C/D/I. Distal gross motor, NV function intact. TELE in place Vital Signs: Temp Pulse Resp BP Pulse Ox 99.4 F 111 18 146/69 94 01/02/19 07:17 01/02/19 07:17 01/02/19 10:48 01/02/19 07:17 01/02/19 08:00 Laboratory Results - last 24 hr 01/01/19 01/01/19 01/01/19 19:21 19:21 19:21 WBC 12.4 H RBC 3.85 Hgb 10.6 L Hct 31 L MCV 81 MCH 28 MCHC 34 RDW 14 Plt Count 204 MPV 8.9 Neut % (Auto) 78.1 Lymph % (Auto) 14.6 Sumner % (Auto) 6.7 Eos % (Auto) 0.2 Baso % (Auto) 0.4 Absolute Neuts (auto) 9.7 H Absolute Lymphs (auto) 1.8 Absolute Monos (auto) 0.8 Absolute Eos (auto) 0.0 Absolute Basos (auto) 0.1 Absolute Nucleated RBC 0.0 Nucleated RBC % 0.0 D-Dimer, Quantitative Sodium 135 Potassium 3.8 Chloride 100 L Carbon Dioxide 29 Anion Gap 6 BUN 13 Creatinine 0.63 Est GFR ( Amer) 118.3 Est GFR (Non-Af Amer) 97.8 BUN/Creatinine Ratio 20.6 H Glucose 129 H Lactic Acid 0.6 Calcium 9.0 Total Bilirubin 0.80 AST 15 ALT 29 Alkaline Phosphatase 86 C-Reactive Protein 123.78 H Total Protein 6.6 Albumin 3.8 Globulin 2.8 Albumin/Globulin Ratio 1.4 TSH 2.62 Urine Color Urine Appearance Urine pH Ur Specific Comstock Urine Protein Urine Ketones Urine Blood Urine Nitrate Urine Bilirubin Urine Urobilinogen Ur Leukocyte Esterase Urine WBC (Auto) Urine RBC (Auto) Ur Squamous Epith Cells Urine Bacteria Urine Glucose 01/01/19 01/02/19 01/02/19 19:21 03:55 05:53 WBC 12.4 H RBC 4.15 Hgb 11.3 L Hct 34 L MCV 81 MCH 27 MCHC 34 RDW 14 Plt Count 221 MPV 8.7 Neut % (Auto) 76.9 Lymph % (Auto) 13.7 Sumner % (Auto) 8.3 Eos % (Auto) 0.5 Baso % (Auto) 0.6 Absolute Neuts (auto) 9.5 H Absolute Lymphs (auto) 1.7 Absolute Monos (auto) 1.0 H Absolute Eos (auto) 0.1 Absolute Basos (auto) 0.1 Absolute Nucleated RBC 0.0 Nucleated RBC % 0.0 D-Dimer, Quantitative 260 H Sodium Potassium Chloride Carbon Dioxide Anion Gap BUN Creatinine Est GFR ( Amer) Est GFR (Non-Af Amer) BUN/Creatinine Ratio Glucose Lactic Acid Calcium Total Bilirubin AST ALT Alkaline Phosphatase C-Reactive Protein Total Protein Albumin Globulin Albumin/Globulin Ratio TSH Urine Color Yellow Urine Appearance Cloudy Urine pH 7.0 Ur Specific Comstock 1.016 Urine Protein Negative Urine Ketones 1+ A Urine Blood 3+ A Urine Nitrate Positive A Urine Bilirubin Negative Urine Urobilinogen Negative Ur Leukocyte Esterase 3+ A Urine WBC (Auto) 3+(>20/hpf) A Urine RBC (Auto) 3+(>10/hpf) A Ur Squamous Epith Cells Present A Urine Bacteria 3+ A Urine Glucose Negative 01/02/19 05:53 WBC RBC Hgb Hct MCV MCH MCHC RDW Plt Count MPV Neut % (Auto) Lymph % (Auto) Sumner % (Auto) Eos % (Auto) Baso % (Auto) Absolute Neuts (auto) Absolute Lymphs (auto) Absolute Monos (auto) Absolute Eos (auto) Absolute Basos (auto) Absolute Nucleated RBC Nucleated RBC % D-Dimer, Quantitative Sodium Potassium Chloride Carbon Dioxide Anion Gap BUN Creatinine Est GFR ( Amer) Est GFR (Non-Af Amer) BUN/Creatinine Ratio Glucose Lactic Acid Calcium Total Bilirubin AST ALT Alkaline Phosphatase C-Reactive Protein 171.26 H Total Protein Albumin Globulin Albumin/Globulin Ratio TSH Urine Color Urine Appearance Urine pH Ur Specific Comstock Urine Protein Urine Ketones Urine Blood Urine Nitrate Urine Bilirubin Urine Urobilinogen Ur Leukocyte Esterase Urine WBC (Auto) Urine RBC (Auto) Ur Squamous Epith Cells Urine Bacteria Urine Glucose ] Assessment: [s/p LTKA POD # 3, concerns of tachycardia, slightly elevated temp, flat affect ] Plan: [Con't PT Medicine was consulted and has seen pt (CXR and EKG non-concerning Pain manangement Eliquis Prepare for D/C home when ok with medicine]
--- NOTE | 2019-01-02 13:29 | PN ---
Subjective Date of Service: 01/02/19 Interval History: Afebrile but getting tylenol with the percoset and Tmax 99.4 this AM with continued tachycardia. Labs last night showed leukocystosis (12.4 stable this aM) and elevated CRP 123 (increased to 171) this AM Complaint of increased muscle spasms in her upper thoracic back that radiate downward eventually. Not controlled with the opioids. Left knee pain a bit better. UA (ordered last night but collected this AM) was suggestive of UTI and I started ceftriaxone. She had some dysuria started this AM (denies last night). Some pain with deep breaths. CXR showed no acute process. EKG sinus tachycardia , suggestion of LVH. Objective Active Medications: Acetaminophen (Tylenol Tab*) 650 mg PO Q8HR PRN PRN Reason: MILD PAIN or TEMP > 100.4 Albuterol (Ventolin Hfa Inhaler*) 2 puff INH BEDTIME [facility] Last Admin: 01/01/19 19:23 Dose: 2 puff Apixaban (Eliquis*) 2.5 mg PO BID [facility] Last Admin: 01/02/19 08:27 Dose: 2.5 mg Bisacodyl (Dulcolax Supp*) 10 mg [place] DAILY PRN PRN Reason: CONSTIPATION Cyclobenzaprine HCl (Flexeril Tab*) 10 mg PO Q6H PRN PRN Reason: SPASMS Last Admin: 01/02/19 05:49 Dose: 10 mg Diphenhydramine HCl (Benadryl Iv*) 25 mg IV Q6H PRN PRN Reason: PRURITIS Diphenhydramine HCl (Benadryl Po*) 25 mg PO Q6H PRN PRN Reason: PRURITIS Docusate Sodium (Colace Cap*) 100 mg PO BID [facility] Last Admin: 01/02/19 07:32 Dose: Not Given Lactated Ringer's (Lactated Ringers 1000 Ml Bag*) 1,000 mls @ 100 mls/hr IV PER RATE [facility] Last Admin: 12/31/18 02:05 Dose: 100 mls/hr Ceftriaxone Sodium 1 gm/ (Sodium Chloride) 50 mls @ 100 mls/hr IVPB Q24H [facility] Last Admin: 01/02/19 09:22 Dose: 100 mls/hr Lactulose (Lactulose*) 30 ml PO BID PRN PRN Reason: CONSTIPATION Levothyroxine Sodium (Synthroid Tab*) 25 mcg PO 1999 [facility] Last Admin: 01/01/19 23:10 Dose: 25 mcg Magnesium Hydroxide (Milk Of Magnesia Liq*) 30 ml PO BID [facility] Last Admin: 01/02/19 07:32 Dose: Not Given Magnesium Hydroxide (Milk Of Magnesia Liq*) 30 ml PO Q6H PRN PRN Reason: CONSTIPATION Morphine Sulfate (Morphine Inj (Syringe))*) 2 mg IV Q4H PRN PRN Reason: Pain - Unrelieved Last Admin: 12/30/18 14:03 Dose: 2 mg Multivitamins (Theragran Tab*) 1 tab PO DAILY [facility] Last Admin: 01/02/19 08:27 Dose: 1 tab Ondansetron HCl (Zofran Inj*) 4 mg IV Q6H PRN PRN Reason: NAUSEA Last Admin: 12/30/18 14:03 Dose: 4 mg Ondansetron HCl (Zofran Odt Tab*) 4 mg PO Q6H PRN PRN Reason: NAUSEA Oxycodone HCl (Roxycodone Tab*) 10 mg PO Q4H PRN PRN Reason: Pain - Breakthrough Last Admin: 01/02/19 08:27 Dose: 10 mg Oxycodone/Acetaminophen (Percocet 5/325 Tab*) 1 tab PO Q4H PRN PRN Reason: PAIN - MODERATE Last Admin: 01/01/19 23:36 Dose: 1 tab Oxycodone/Acetaminophen (Percocet 5/325 Tab*) 2 tab PO Q4H PRN PRN Reason: PAIN - SEVERE Last Admin: 12/31/18 15:46 Dose: 2 tab Scopolamine (Transderm-Scop 1.5 Mg Patch*) 1 patch TRANSDERM Q72H PRN PRN Reason: Nausea/Vomiting Vital Signs - 8 hr 01/02/19 01/02/19 01/02/19 05:49 07:17 08:00 Temperature 99.4 F Pulse Rate 111 Respiratory 16 17 18 Rate Blood Pressure 146/69 (mmHg) O2 Sat by Pulse 94 94 Oximetry 01/02/19 01/02/19 01/02/19 08:27 10:48 11:23 Temperature 98.7 F Pulse Rate 111 Respiratory 18 18 17 Rate Blood Pressure 145/68 (mmHg) O2 Sat by Pulse 97 Oximetry Oxygen Devices in Use Now: None Appearance: Sitting in chair, grunting in pain Eyes: No Scleral Icterus Ears/Nose/Mouth/Throat: NL Teeth, Lips, Gums Neck: NL Appearance and Movements; NL JVP Respiratory: Symmetrical Chest Expansion and Respiratory Effort, Clear to Auscultation Cardiovascular: - - tachycardic, regular Abdominal: NL Sounds; No Tenderness; No Distention, - - some mild tenderness RUQ , soft, nondistended. Extremities: No Edema, - - left knee with intact staple, dressing c/d/i Skin: No Rash or Ulcers Neurological: Alert and Oriented x 3 Nutrition: Taking PO's Result Diagrams: 01/02/19 05:53 01/01/19 19:21 Additional Lab and Data: Laboratory Results - last 24 hr 01/01/19 01/01/19 01/01/19 19:21 19:21 19:21 WBC 12.4 H RBC 3.85 Hgb 10.6 L Hct 31 L MCV 81 MCH 28 MCHC 34 RDW 14 Plt Count 204 MPV 8.9 Neut % (Auto) 78.1 Lymph % (Auto) 14.6 Cotton % (Auto) 6.7 Eos % (Auto) 0.2 Baso % (Auto) 0.4 Absolute Neuts (auto) 9.7 H Absolute Lymphs (auto) 1.8 Absolute Monos (auto) 0.8 Absolute Eos (auto) 0.0 Absolute Basos (auto) 0.1 Absolute Nucleated RBC 0.0 Nucleated RBC % 0.0 D-Dimer, Quantitative Sodium 135 Potassium 3.8 Chloride 100 L Carbon Dioxide 29 Anion Gap 6 BUN 13 Creatinine 0.63 Est GFR ( Amer) 118.3 Est GFR (Non-Af Amer) 97.8 BUN/Creatinine Ratio 20.6 H Glucose 129 H Lactic Acid 0.6 Calcium 9.0 Total Bilirubin 0.80 AST 15 ALT 29 Alkaline Phosphatase 86 C-Reactive Protein 123.78 H Total Protein 6.6 Albumin 3.8 Globulin 2.8 Albumin/Globulin Ratio 1.4 TSH 2.62 Urine Color Urine Appearance Urine pH Ur Specific [place] Urine Protein Urine Ketones Urine Blood Urine Nitrate Urine Bilirubin Urine Urobilinogen Ur Leukocyte Esterase Urine WBC (Auto) Urine RBC (Auto) Ur Squamous Epith Cells Urine Bacteria Urine Glucose 01/01/19 01/02/19 01/02/19 19:21 03:55 05:53 WBC 12.4 H RBC 4.15 Hgb 11.3 L Hct 34 L MCV 81 MCH 27 MCHC 34 RDW 14 Plt Count 221 MPV 8.7 Neut % (Auto) 76.9 Lymph % (Auto) 13.7 Cotton % (Auto) 8.3 Eos % (Auto) 0.5 Baso % (Auto) 0.6 Absolute Neuts (auto) 9.5 H Absolute Lymphs (auto) 1.7 Absolute Monos (auto) 1.0 H Absolute Eos (auto) 0.1 Absolute Basos (auto) 0.1 Absolute Nucleated RBC 0.0 Nucleated RBC % 0.0 D-Dimer, Quantitative 260 H Sodium Potassium Chloride Carbon Dioxide Anion Gap BUN Creatinine Est GFR ( Amer) Est GFR (Non-Af Amer) BUN/Creatinine Ratio Glucose Lactic Acid Calcium Total Bilirubin AST ALT Alkaline Phosphatase C-Reactive Protein Total Protein Albumin Globulin Albumin/Globulin Ratio TSH Urine Color Yellow Urine Appearance Cloudy Urine pH 7.0 Ur Specific [place] 1.016 Urine Protein Negative Urine Ketones 1+ A Urine Blood 3+ A Urine Nitrate Positive A Urine Bilirubin Negative Urine Urobilinogen Negative Ur Leukocyte Esterase 3+ A Urine WBC (Auto) 3+(>20/hpf) A Urine RBC (Auto) 3+(>10/hpf) A Ur Squamous Epith Cells Present A Urine Bacteria 3+ A Urine Glucose Negative 01/02/19 05:53 WBC RBC Hgb Hct MCV MCH MCHC RDW Plt Count MPV Neut % (Auto) Lymph % (Auto) Cotton % (Auto) Eos % (Auto) Baso % (Auto) Absolute Neuts (auto) Absolute Lymphs (auto) Absolute Monos (auto) Absolute Eos (auto) Absolute Basos (auto) Absolute Nucleated RBC Nucleated RBC % D-Dimer, Quantitative Sodium Potassium Chloride Carbon Dioxide Anion Gap BUN Creatinine Est GFR ( Amer) Est GFR (Non-Af Amer) BUN/Creatinine Ratio Glucose Lactic Acid Calcium Total Bilirubin AST ALT Alkaline Phosphatase C-Reactive Protein 171.26 H Total Protein Albumin Globulin Albumin/Globulin Ratio TSH Urine Color Urine Appearance Urine pH Ur Specific [place] Urine Protein Urine Ketones Urine Blood Urine Nitrate Urine Bilirubin Urine Urobilinogen Ur Leukocyte Esterase Urine WBC (Auto) Urine RBC (Auto) Ur Squamous Epith Cells Urine Bacteria Urine Glucose Assess/Plan/Problems-Billing Assessment: 58 yo female PMH hypothyroidism, chronic back pain, obesity, scoliosis here for elective left total knee with Dr. Fuentes on 12/30. Medicine consulted for tachycardia, flushed face and flat affect. U/A w/ e/o of UTI. - Patient Problems (1) Sepsis Current Visit: Yes Status: Acute Comment: tachycardia, leukocytosis and UA suspicious for UTI. Started on ceftriaxone this AM no CVA tenderness. F/u Urine cultures and Blood Cultures If patient discharge today would d/c with cipro 500mg BID for 6 more days. (2) UTI (urinary tract infection) Current Visit: Yes Status: Acute Comment: plan as above. (3) Hypothyroidism Current Visit: Yes Status: Acute Code(s): E03.9 - HYPOTHYROIDISM, UNSPECIFIED SNOMED Code(s): 46484387 Comment: TSH wnl continue home synthroid. (4) Status post total left knee replacement Current Visit: Yes Status: Acute Code(s): Z96.652 - PRESENCE OF LEFT ARTIFICIAL KNEE JOINT SNOMED Code(s): 9059866647974 Comment: pain and dvt ppx management per Ortho (5) Back pain Current Visit: Yes Status: Acute Code(s): M54.9 - DORSALGIA, UNSPECIFIED SNOMED Code(s): 654571410 Comment: chronic with acute exacerbation in upper thoracic back with spasms. Hx of scoliosis. continue opioids, muscle relaxers. trial lidocaine patch. Status and Disposition: ortho, medicine consulting. no opposition to discharge today if close f/u of BCx and UCx results
[2019-01-02] MEDS: Lidocaine PATCH 5%* 1 PATCH TRANSDERM SCH (15:12)
[2019-01-02] MEDS: Albuterol HFA INHALER* 8 gm MDI INH SCH (19:17)
[2019-01-02] MEDS ORDERED: NS 0.9% 1000 ML** 1,000 ML IV ONE (20:10)
[2019-01-02] MEDS: Levothyroxine TAB* 25 MCG TAB PO SCH (20:21)
[2019-01-02] MEDS ORDERED: Lidocaine Patch REMOVE* 1 NOTE MISC SCH (21:00)
[2019-01-02] MEDS: oxyCODONE/Acetamin 5/325 MG* TAB PO PRN (21:03)
[2019-01-03] MEDS: oxyCODONE TAB* 5 MG TAB PO PRN (04:04)
[2019-01-03] MEDS: Lidocaine PATCH 5%* 1 PATCH TRANSDERM SCH (08:17)
[2019-01-03] MEDS: Docusate CAP* 100 MG PO SCH (08:18)
[2019-01-03] MEDS: Vitamin THERAPEUTIC TAB PO SCH (08:18)
[2019-01-03] MEDS: Apixaban* 2.5 MG TAB PO SCH (08:18)
[2019-01-03] MEDS: Magnesium Hydroxide LIQ* 30 ML UDC PO SCH (08:19)
[2019-01-03 08:23] LABS: ABS Basophils 0.1 10^3/ul (0-0.2); ABS Eosinophils 0.1 10^3/ul (0-0.6); ABS Lymphocytes 2.2 10^3/ul (1.0-4.8); ABS Monocytes 0.6 10^3/ul (0-0.8); ABS Neutrophils 5.4 10^3/ul (1.5-7.7); Eosinophil % 1.7 %; Hematocrit 33 % (35-47); Hemoglobin 11.2 g/dL (12.0-16.0); Lymphocyte % 26.1 %; Mean Corpuscular HGB Conc 34 g/dL (31-36); Mean Corpuscular Hemoglobin 28 pg (27-31); Mean Corpuscular Volume 83 fL (80-97); Mean Platelet Volume 8.3 fL (7.4-10.4); Nucleated Red Blood Cells % 0.1; Platelet Count 221 10^3/uL (150-450); Red Cell Distribution Width 14 % (10-15); White Blood Count 8.4 10^3/uL (3.5-10.8)
[2019-01-03] MEDS: cefTRIAXone(*) 1 GM in NS 0.9% 50 ML* 50 ML IVPB SCH (08:25)
--- NOTE | 2019-01-03 09:50 | PN ---
Progress Note - Progress Note Date of Service: 01/03/19 SOAP: Subjective: POD #4 Left TKA. Doing well. Pain in knee well controlled. Denies CP/SOB, f/c, n /v. Objective: Vital Signs: Temp Pulse Resp BP Pulse Ox 98.3 F 103 16 124/75 98 01/03/19 08:28 01/03/19 08:28 01/03/19 08:28 01/03/19 08:28 01/03/19 08:28 Gen: A&Ox3, NAD at rest sitting in chair LLE: Dressing C/D/I. + f/e at ankle and MTPs. N/V intact Assessment: POD #4 Left TKA Plan: Patient with tachycardia, suspected from UTI. On IV abx per medicine Continue PT Continue Eliquis for DVT ppx Continue current pain medications Ok for d/c home once cleared by medicine
[2019-01-03] MEDS: oxyCODONE/Acetamin 5/325 MG* TAB PO PRN (13:02)
--- NOTE | 2019-01-03 15:50 | DS ---
Orthopedic Discharge Summary - Discharge Summary Date of Admission:12/30/18 Date of Discharge: 01/03/19 Date of Surgery: 12/30/18 Attending Orthopedic Provider: Rowan Fuentes MD Pre-operative Diagnosis: Left knee osteoarthritis Operative Procedure: Left total knee arthroplasty, navio assisted Disposition of Patient: Home Condition of Patient: Stable History: TREASURE BOWEN is a 58 year old F with years of increasingly severe left knee pain. Patient has failed conservative management and has elected to undergo a left total knee replacement Hospital Course: TREASURE was admitted to [facility] on 12/30/18. Patient underwent a left total knee arthroplasty without complication followed by a brief recovery in PACU and transfer to the Short Stay Surgical Unit in stable condition. Physical therapy and occupational therapy also participated in this patients care. Post-op day 1: Patient was alert and in no acute distress. Dressing was clean, dry and intact. Operative extremity dorsiflexion and plantarflexion intact, sensation intact to light touch distally, DP2+. Post- op day two: Dressing was changed, incision was clean, dry and intact. Patient had persistent tachycardia, and a low grade fever. Medicine was consulted on and patient had additional work up for this. EKG and chest xray were unremarkable. Urinalysis was postive for UTI. Patient denied chest pain, shortness of breath, dizziness or lightheadedness. She was started on IV Ceftriaxone. Post-op day 3: Patient continued to have tachycardia and leukocytosis, continued on IV Ceftriaxone. Post-op day 4: Patient was deemed to be medically and orthopedically stable for discharge. Physical therapy goals were met. Patient will continue on Cipro 500 mg BID for 5 days for the UTI. Home Medications Medication Instructions Recorded Confirmed Type Levothyroxine TAB* [Synthroid 25 25 mcg PO 2000 05/11/13 12/30/18 History MCG TAB*] Cyclobenzaprine TAB* [Flexeril 10 10 mg PO TID PRN 11/11/14 12/30/18 History MG TAB*] Fluticasone NASAL SPRAY 50MCG* 2 spray BOTH NARES DAILY PRN 11/11/14 12/30/18 History [Flonase NASAL SPRAY 50MCG*] Albuterol HFA INHALER* [Ventolin 2 puff INH BEDTIME 04/13/18 12/30/18 History HFA Inhaler*] Ibuprofen [Advil Liqui-Gels] 2 tab PO DAILY PRN 04/13/18 12/30/18 History Apixaban* [Eliquis*] 2.5 mg PO BID tab 01/03/19 Rx Ciprofloxacin HCl [Cipro] 500 mg PO BID #10 tablet 01/03/19 Rx Docusate CAP* [Colace Cap*] 100 mg PO BID cap 01/03/19 Rx oxyCODONE/Acetamin 5/325 MG* 1 tab PO Q4H PRN tab 01/03/19 Rx [Percocet 5/325 TAB*] oxyCODONE/Acetamin 5/325 MG* 2 tab PO Q4H PRN tab 01/03/19 Rx [Percocet 5/325 TAB*] DISCHARGE INSTRUCTIONS: Weight Bearing as tolerated with walker Wound Care: OK to shower on post-op day 3, no bathing/ swimming/ submerging wound. Use gentle soap, pat dry. Cover with gauze, JASON wrap or tape. Call Orthopedic office for increased drainage, redness, increased pain, or fever. Go to ER with shortness of breath or chest pain. Diet: Regular diet, increase fluids and fiber to prevent constipation. Continue to use stool softeners, call office if no bowel motion within 48 hours. - Continue physical therapy and occupational therapy exercises as shown. - Visiting home nurse to do wound checks. DVT Prophylaxis: - Eliquis- 2.5mg twice daily x 1 month - Pain control with: Percocet 5/325 mg 1-2 tabs by mouth every 4-6 hours as needed for pain. Maximum of 10 tabs per day Please note that Percocet contains Tylenol (acetaminophen). Maximum daily dose of Tylenol is 4000 mg from all sources. - Antibiotics required prior to any dental work. FOLLOW UP: Follow up with Dr. Fuentes Within 10-14 days, call for appointment Please call our office with any questions or concerns ([phone]) Medications sent to [facility] meds to [facility] inpatient pharmacy
[2019-01-03 16:29] VITALS: BP 126/69
== END 2019-01-03 17:20 | disposition home health service (06) | DRG 469 ==
LOC: AA 05:46 → SSU 11:01
PROVIDERS: ADMIT Orthopaedic Surgery Adult Reconstructive Orthopaedic Surgery; ATTEND Orthopaedic Surgery Adult Reconstructive Orthopaedic Surgery
PROC: 8E0Y0CZ Robotic Assisted Procedure of Lower Extremity, Open Approach (ICD-10-PCS; 2018-12-30)
PROC: 0SRD069 Replacement of Left Knee Joint with Oxidized Zirconium on Polyethylene Synthetic Substitute, Cemented, Open Approach (ICD-10-PCS; principal; 2018-12-30 07:45)
DX: M17.12 Unilateral primary osteoarthritis, left knee (principal); A41.9 Sepsis, unspecified organism; N39.0 Urinary tract infection, site not specified; E03.9 Hypothyroidism, unspecified; E66.01 Morbid (severe) obesity due to excess calories; M41.9 Scoliosis, unspecified; Z96.651 Presence of right artificial knee joint; M25.762 Osteophyte, left knee; B96.20 Unspecified Escherichia coli [E. coli] as the cause of diseases classified elsewhere; M54.9 Dorsalgia, unspecified; J45.909 Unspecified asthma, uncomplicated; Z80.9 Family history of malignant neoplasm, unspecified; Z87.891 Personal history of nicotine dependence; Z68.33 Body mass index [BMI] 33.0-33.9, adult; Z88.0 Allergy status to penicillin; Z79.899 Other long term (current) drug therapy
CPT/HCPCS: 36415; 71045; 71046; 80048; 80053; 81003; 81015; 83605; 84443; 85014; 85018; 85025; 85049; 85379; 85610; 85730; 86140; 86850; 86900; 86901; 87040; 87077; 87086; 87186; 88305; 88311; 93005; 94640; A9270-GY; C1776; G8978-GP-CK; G8979-GP-CI; J0696; J1100; J1170; J2250; J2270; J2405; J2704; J2795; J3010